=== PATIENT | female | born 1960 ===

== ENCOUNTER 2021-06-08 16:07 | Outpatient (REF) | payer MEDICARE, MEDICAID, SELFPAY ==
--- NOTE | ~2021-06-08 | XR_ITS ---
EXAMINATION: XR ANKLE, RIGHT XR FOOT, RIGHT CLINICAL INFORMATION: Pain. COMPARISON: None TECHNIQUE: AP, oblique, and lateral views of the right ankle and right foot. FINDINGS: No acute fracture or dislocation. The ankle mortise is maintained. No joint space narrowing or marginal osteophytes. No osseous erosion. Plantar and dorsal calcaneal enthesophytes. Prominent circumferential soft tissue swelling. XR/XR ankle RT 2V IMPRESSION: Prominent circumferential soft tissue swelling without acute osseous abnormality.
--- NOTE | ~2021-06-08 | XR_ITS ---
EXAMINATION: XR ANKLE, RIGHT XR FOOT, RIGHT CLINICAL INFORMATION: Pain. COMPARISON: None TECHNIQUE: AP, oblique, and lateral views of the right ankle and right foot. FINDINGS: No acute fracture or dislocation. The ankle mortise is maintained. No joint space narrowing or marginal osteophytes. No osseous erosion. Plantar and dorsal calcaneal enthesophytes. Prominent circumferential soft tissue swelling. XR/XR foot RT min 3V IMPRESSION: Prominent circumferential soft tissue swelling without acute osseous abnormality.
== END 2021-06-08 16:08 | disposition home or self-care (01) ==
LOC: HO.HMGCX 16:07
PROVIDERS: PCP Internal Medicine; Visit Provider Internal Medicine
DX: Z13.89 Encounter for screening for other disorder (principal)
CPT/HCPCS: 73600; 73630

== ENCOUNTER 2021-08-17 12:33 | Outpatient (REF) | payer MEDICARE, MEDICAID, SELFPAY ==
--- NOTE | ~2021-08-17 | XR_ITS ---
EXAMINATION: XR LUMBAR SPINE XR SACRUM AND COCCYX CLINICAL INFORMATION: W19.XXXA - Unspecified fall, initial encounter COMPARISON: None TECHNIQUE: Lumbar spine is imaged in 3 views. The sacrum/coccyx are imaged in 3 views. There are total of 6 views. FINDINGS: Normal lumbar segmentation with 5 nonrib-bearing lumbar vertebrae of normal height and normal lumbar lordosis. No vertebral compression or visible fracture or spondylolisthesis. No focal disc narrowing or endplate sclerosis. No erosive change. There is IVC filter right para lumbar region. Benign-appearing coarse calcification present left hemipelvis measuring 1.2 x 2.1 cm. Bowel gas unremarkable. The sacrum and coccyx show no fracture or dislocation or destructive process. No diastases SI joints. No erosive changes. There is mild spurring from the inferior SI joints and mild osteitis pubis. XR/XR sacrum coccyx min 2V IMPRESSION: No acute bony abnormality.
--- NOTE | ~2021-08-17 | XR_ITS ---
EXAMINATION: XR RIBS, RIGHT CLINICAL INFORMATION: W19.XXXA - Unspecified fall, initial encounter COMPARISON: None TECHNIQUE: Frontal view chest and 3 views right ribs are obtained for a total of 4 views. FINDINGS: There is no visible rib fracture or rib destructive process. There are prominent C7 transverse processes versus small cervical ribs, greater on right. There is no pneumothorax or pleural reaction or effusion. There is coarsening of the peripheral bronchovascular and interstitial markings. No lobar or segmental airspace consolidation or subsegmental groundglass opacity. The costophrenic sulci are clear. Heart is normal in size. The hilar and mediastinal contours are normal. XR/XR ribs RT min 3V w CXR1V IMPRESSION: 1. No visible rib fracture. No pneumothorax, pleural reaction, or effusion. 2. Coarsening bronchovascular/interstitial markings. No lobar or segmental airspace consolidation.
--- NOTE | ~2021-08-17 | XR_ITS ---
EXAMINATION: XR LUMBAR SPINE XR SACRUM AND COCCYX CLINICAL INFORMATION: W19.XXXA - Unspecified fall, initial encounter COMPARISON: None TECHNIQUE: Lumbar spine is imaged in 3 views. The sacrum/coccyx are imaged in 3 views. There are total of 6 views. FINDINGS: Normal lumbar segmentation with 5 nonrib-bearing lumbar vertebrae of normal height and normal lumbar lordosis. No vertebral compression or visible fracture or spondylolisthesis. No focal disc narrowing or endplate sclerosis. No erosive change. There is IVC filter right para lumbar region. Benign-appearing coarse calcification present left hemipelvis measuring 1.2 x 2.1 cm. Bowel gas unremarkable. The sacrum and coccyx show no fracture or dislocation or destructive process. No diastases SI joints. No erosive changes. There is mild spurring from the inferior SI joints and mild osteitis pubis. XR/XR lumbar spine 2-3V IMPRESSION: No acute bony abnormality.
== END 2021-08-17 12:34 | disposition home or self-care (01) ==
LOC: HO.HMGCX 12:33
PROVIDERS: PCP Internal Medicine; Visit Provider Internal Medicine
DX: M54.50 Low back pain, unspecified (principal); R07.9 Chest pain, unspecified; W19.XXXA Unspecified fall, initial encounter
CPT/HCPCS: 71101; 72100; 72220

== ENCOUNTER 2022-11-25 12:41 | Outpatient (REF) | payer MEDICARE, MEDICAID, SELFPAY ==
--- NOTE | ~2022-11-25 | XR_ITS ---
EXAMINATION: XR ANKLE, RIGHT CLINICAL INFORMATION: Achilles tendinitis, right leg COMPARISON: None TECHNIQUE: AP, lateral, and mortise views of the right ankle. FINDINGS: No fracture or dislocation. The ankle mortise is congruent. Circumferential soft tissue swelling. No ankle joint effusion. Moderate hypertrophic spurring of the plantar aponeurosis and Achilles insertion of the calcaneus. Additional calcification along the Achilles tendon. XR/XR ankle RT min 3V IMPRESSION: Moderate heel spurs. Achilles calcification. No acute osseous abnormality.
[2022-11-25 14:01] LABS: MANUAL DIFF FLAG NO
[2022-11-25 14:08] LABS: Basophils Absolute Auto 0.1 X10*3/uL (0.0-0.2); Basophils Percent Auto 0.8 % (0-2); Eosinophils Absolute Auto 0.4 X10*3/uL (0.0-0.4); Eosinophils Percent Auto 3.8 % (0-4); Hematocrit 49.6 % (37.0-47.0); Imm Gran Abs Auto 0.04 X10*3/uL (0.00-0.03); Imm Gran Pct Auto 0.4 % (0.0-0.4); Lymphocytes Absolute Auto 2.9 X10*3/uL (1.2-4.9); Lymphocytes Percent Auto 30.6 % (20-40); Mean Corpuscular HGB Conc 32.3 g/dl (31.0-35.0); Mean Corpuscular Hemoglobin 30.1 pg (27.0-33.0); Mean Corpuscular Volume 93.4 fL (80.0-98.0); Mean Platelet Volume 11.7 fL (9.4-12.3); Monocytes Absolute Auto 0.8 X10*3/uL (0.1-1.2); Monocytes Percent Auto 7.9 % (2-11); Neutrophils Absolute Auto 5.3 x10*3/uL (2.0-8.3); Neutrophils Percent Auto 56.5 % (45-73); Platelet Count 248 X10*3/uL (160-400); Red Blood Count 5.31 X10*6/uL (4.20-5.50); Red Cell Distribution Width 13.5 % (11.0-16.0); White Blood Count 9.4 X10*3/uL (4.8-10.8)
[2022-11-25 14:28] LABS: Alanine Aminotransferase 36 U/L (0-31); Albumin Level 4.1 g/dL (3.5-5.0); Alkaline Phosphatase 66 U/L (39-117); Anion Gap 13 (12-20); Aspartate Amino Transferase 27 U/L (5-31); Bilirubin Total 0.7 mg/dL (0.0-1.0); Blood Urea Nitrogen 14 mg/dL (9-16); Calcium 9.3 mg/dL (8.4-10.2); Carbon Dioxide 28 mmol/L (22-29); Chloride 106 mmol/L (96-108); Estimated Glomerular Filt Rate > 60; Glucose Random 111 mg/dL (60-115); Potassium 4.8 mmol/L (3.3-5.1); Sodium 142 mmol/L (135-145); Total Protein 7.6 g/dL (6.5-8.0)
[2022-11-25 14:45] LABS: TSH reflex Free T4 3.14 uIU/mL (0.32-4.0)
[2022-11-26 13:44] LABS: LDL Cholesterol Direct 127 mg/dL (<100)
== END 2022-11-25 12:42 | disposition home or self-care (01) ==
LOC: HO.HMGCX 12:41
PROVIDERS: Absent Provider Internal Medicine; PCP Internal Medicine; Visit Provider Internal Medicine
DX: F33.9 Major depressive disorder, recurrent, unspecified (principal); I82.409 Acute embolism and thrombosis of unspecified deep veins of unspecified lower extremity; F41.1 Generalized anxiety disorder; K21.9 Gastro-esophageal reflux disease without esophagitis; K22.4 Dyskinesia of esophagus; Z76.89 Persons encountering health services in other specified circumstances; Z92.29 Personal history of other drug therapy; G89.29 Other chronic pain; M79.606 Pain in leg, unspecified; I73.9 Peripheral vascular disease, unspecified
CPT/HCPCS: 36415; 73610; 80053; 83721; 84443; 85025

== ENCOUNTER 2023-04-11 11:03 | Outpatient (AMB) | payer MEDICARE, MEDICAID, SELFPAY ==
--- NOTE | 2023-04-11 11:05 | A.OFFPC_ITS ---
Vital Signs 04/11/23 11:07 Height 5 ft 3 in Weight 177 lb BMI 31.4 BP 122/78 Blood Pressure Location Lt brachial Position Sitting Pulse 91 Pulse Source Pulse Oximeter Pulse Oximetry (%) 96 Oxygen Delivery Method Room Air Intake Visit Reasons: Right leg f/u Allergies esomeprazole [Nexium] Allergy (Unknown, Verified 03/15/23 15:35) Unknown iron Allergy (Unknown, Verified 03/15/23 15:35) I go blind oxycodone Allergy (Unknown, Verified 03/15/23 15:35) Unknown tramadol Allergy (Unknown, Verified 03/15/23 15:35) itching stomach pain headaches warfarin Adverse Reaction (Unknown, Verified 03/15/23 15:35) gum and nose bleeds Contrast dye Allergy (Unknown, Uncoded 11/19/22 14:30) itching, nosebleeds Medication List - Last Reconciled 04/11/23 by Phil Lopez MD albuterol sulfate 2.5 mg (3 mL) inhalation QID PRN apixaban (Eliquis) 2.5 mg PO BID buspirone 5 mg PO .q am PRN 30 days cyclobenzaprine 5 mg PO BEDTIME 30 days fluticasone furoate-vilanterol 200-25 mcg/dose (Breo Ellipta) 1 ea PO DAILY gabapentin 600 mg PO BID 90 days hydrocortisone acetate 25 mg CA BID 6 days pantoprazole 40 mg PO DAILY 90 days sennosides-docusate sodium 8.6-50 mg (Senokot-S) 1 tab-cap PO BEDTIME 30 days tizanidine 2 mg PO Q8H PRN Ventolin HFA 90 mcg/actuation (albuterol sulfate) 1 inh inhalation QID PRN 30 days NS Tobacco use date assessed: 04/11/23 Dental Screening Dental Screen Date: 04/11/23 Did you have a dental visit in the last 12 months?: No Did you have a dental problem in the last 6 months where you did not have access to dental care?: No Was dental information given to patient?: No HPI Right leg f/u HPI Details Chief complaint: Patient is a 62-year-old female with history of clotting disorder and recurrent clots in her legs and left arm as long as lungs came in today to have paperwork filled to get a scooter. Patient is currently using scooter for many years and it has started causing problems she is requesting a new scooter It is medically necessary for this patient to have a scooter because of mobility issues. She continued to get edema in her lower extremity right more than left due to history of recurrent DVTs which contribute to her inability to ambulate. On examination patient has 4 / 5 strength in for lower extremities., she is able to stand with the help but not able to walk without assistance. Her left arm and has strength of 4 x 5 compared to right arm. Patient is not able to use the manual wheelchair due to weakness in her left arm. School will medically meet patient's mobility needs at home She can safely operate the motorized wheelchair like scooter and is willing and motivated to use it. MRADLs: Patient cannot use cane or walker because of weakness and pain in her lower extremities and weakness in her left arm. She have history of recurrent falls because of that. She is dependent on her partner to use bathroom and toilet and be the, partially dependent for partner to prepare meals but able to make sandwiches if she has a scooter She is dependent on her partner for grooming and dressing. [facility] Medical History Anxiety, generalized Asthma Hx of senior care use of blood thinners Muscle spasms of both lower extremities Recurrent deep vein thrombosis (DVT) Surgical History Hx of cholecystectomy S/P IVC filter Family History Father No problems noted. Mother HTN (hypertension) Diabetes mellitus Brother No problems noted. Sister No problems noted. Sister No problems noted. Son No problems noted. Son No problems noted. Son No problems noted. Son No problems noted. Son No problems noted. Social History Housing: House Patient Tobacco Use Status: Never used Tobacco e-Cigarette/Vaping Use: Never Used Second Hand Smoke Exposure: No Current occupational status: disabled Cognitive needs: No Hearing needs: No Vision needs: No Questionnaire Thrive Questionnaire Date Thrive assessed: 08/23/22 AUDIT C Alcohol Use Questionnaire (AUDIT-C) 1. How often do you have a drink containing alcohol?: Never 3. How often do you have six or more drinks on one occasion?: Never Total Score: 0 Score Reviewed/Action Taken: Yes Review of Systems Const Denies chills and Denies fever(s) ENT Denies epistaxis and Denies nasal discharge Card Denies chest pain Resp Denies chest congestion, Denies cough and Denies hemoptysis GI Denies diarrhea and Denies nausea Skin/Breast Denies rash Neuro Reports no additional complaints Psych Reports no additional complaints Endo Reports no additional complaints Physical exam (Primary Care) Vital Signs: Last Vital Signs Pulse 91 04/11/23 11:07 BP 122/78 04/11/23 11:07 Pulse Ox 96 04/11/23 11:07 Oxygen Delivery Method Room Air 04/11/23 11:07 BMI result Body Mass Index 31.4 Tobacco/Smoking Status: Tobacco use Status Tobacco use date assessed 04/11/23 04/11/23 11:10 Patient Tobacco Use Status Never used Tobacco 04/11/23 11:07 e-Cigarette/Vaping Use Never Used 04/11/23 11:07 Thrive Assessment: Date of Thrive Assessment Date Thrive assessed 08/23/22 04/11/23 11:07 Const Other: Came in sitting on her scooter with her partner General: cooperative, comfortable and no acute distress Orientation/consciousness: patient oriented x3 HENMT Head: Yes normocephalic Eyes General: appearance normal, both eyes and all related structures Neck Neck: Yes supple Resp Effort & Inspection: normal respiratory effort, no cough and no stridor Cardio Rhythm: regular rhythm Heart sounds: S1 normal heart sound present and S2 normal heart sound present Skin General skin exam: turgor normal Neuro Other: Motor strength by by both legs with instability when standing up. 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 Patient is able to stand with assistance it not able to walk without assistance General: patient oriented x3, tone normal and moves all extremities Assessment and Plan Assessment & Plan (1) Mobility impaired: Code(s): Z74.09 - Other reduced mobility Plan Chief complaint: Patient is a 62-year-old female with history of clotting disorder and recurrent clots in her legs and left arm as long as lungs came in today to have paperwork filled to get a scooter. Patient is currently using scooter for many years and it has started causing problems she is requesting a new scooter It is medically necessary for this patient to have a scooter because of mobility issues. She continued to get edema in her lower extremity right more than left due to history of recurrent DVTs which contribute to her inability to ambulate. On examination patient has 4 / 5 strength in for lower extremities., she is able to stand with the help but not able to walk without assistance. Her left arm and has strength of 4 x 5 compared to right arm. Patient is not able to use the manual wheelchair due to weakness in her left arm. School will medically meet patient's mobility needs at home She can safely operate the motorized wheelchair like scooter and is willing and motivated to use it. MRADLs: Patient cannot use cane or walker because of weakness and pain in her lower extremities and weakness in her left arm. She have history of recurrent falls because of that. She is dependent on her partner to use bathroom and toilet and be the, partially dependent for partner to prepare meals but able to make sandwiches if she has a scooter She is dependent on her partner for grooming and dressing. Coding Level of Care Code Est Pt Level 5 (02635) Diagnoses Mobility impaired Z74.09 Time Spent (min) 61 Comment 61 minute spent in care of this patient including [id number] and paperwork, charting
[2023-04-11 11:07] VITALS: BP 122/78; PULSE 91; O2SAT 96; BMI 31.4
== END 2023-04-11 12:23 | disposition home or self-care (01) ==
PROVIDERS: PCP Internal Medicine; Visit Provider Internal Medicine
DX: Z74.09 Other reduced mobility (principal)
CPT/HCPCS: 99215

== ENCOUNTER 2024-01-29 14:15 | Outpatient (AMB) | payer MEDICARE, MEDICAID, SELFPAY ==
--- OUTSIDE RECORDS SUMMARY | 2024-01-29 14:18 | XMS_ITS | Continuity of Care Document ---
Author Organization [facility] Pul[facility] ed[facility] Address [address] [address]- Care Team Providers Care Harness Brusher Name Role Phone John LUNDBERG, Asmmartin Primary Care Physician [phone] Encounter [facility] [place] Date(s): 03/27/23 - 04/26/23 [facility] [address] [place] [id number] Attending Physician: Admtr, Rl Admitting Physician: Admtr, Ar8 Referring Physician: Admtr, Ar8 Allergies, Adverse Reactions, Alerts Substance Reaction Severity Status morphine GI Upset, itching Active Contrast Dye 1 skin rash nose bleed Active Iron affects eye sight Active NSAIDs 2 Active oxyCODONE GI Upset, itching Active 1IV 2Due to being on blood thinner Immunizations Given and Recorded Vaccine Date Status Refusal Reason tetanus-diphtheria toxoids (Td) 1 07/27/11 Given 1Admin Note: MANFTD MASS BIO VIS GIVEN 08/19/2008 Medications Eliquis 2.5 mg oral tablet 1 tablet = 2.5 mg, By Mouth, 2 times a day, # 60 tablet, 0 Refills, Maintenance, 12/27/20 8:26:00 EDT, Tablet, Partial fill upon patient request if the prescription is for a schedule II opioid drug. Start Date: 12/27/20 Status: Ordered gabapentin 600 mg oral tablet 1 tablet = 600 mg, By Mouth, Daily at bedtime, TAKE 1 TABLET BY MOUTH AT BEDTIME, Maintenance Start Date: 12/27/20 Stop Date: 01/26/21 Status: Ordered ProAir HFA 90 mcg/inh inhalation aerosol with adapter 1, puffs, Inhalation, Every 4 hours, PRN, # 8.5 Gm, Refills 0, Maintenance, 04/14/16 12:07:25, Aerosol Start Date: 04/14/16 Status: Ordered tiZANidine 4 mg oral capsule 1 capsule = 4 mg, By Mouth, Daily, PRN Spasm, # 90 capsule, 0 Refills, Maintenance, 12/27/20 8:24:00 EDT, Capsule, Partial fill upon patient request if the prescription is for a schedule II opioid drug. Start Date: 12/27/20 Status: Ordered Problem List Condition Confirmation Course Effective Dates Status Health St atus Informant Anemia Confirmed Active Disorders of Menstruation and Other Abnormal Bleeding from Female Genital Tract Confirmed Active DVT - Deep vein thrombosis 1 Confirmed Active Obese class I Confirmed Active Pulmonary embolism 2 Confirmed 04/25/11 Active 1R leg, R cephalic vein 2bilateral Social History Social History Type Response Smoking Status Never smoker; Tobacc o user in household: No entered on: 08/04/14 Sex Patient Care team information Care Team Personnel Name: Lucrecia Bradley RN Position: [facility] RN Member Role: Primary Care Nurse Name: John LUNDBERG, Phil Position: [facility] Physician - Primary Care Member Role: PCP Address: Address: [address] [place] [address]- Name: Harinder Dick DO Position: [facility] Renal MD Member Role: Lifetime Consulting Physician Address: Address: [address] [place] [address] [address] [facility] [place] [address]- Care Team Related Persons Name: JANINE CABALLERO Address: home [address] [place] [address] Name: AFHEEM UGARTE Address: [address] [place] [address] Name: FAITH KUO Address: [address] [place] [address] Name: CORA KUO Address: home [address] [place] [address]
--- OUTSIDE RECORDS SUMMARY | 2024-01-29 14:18 | XMS_ITS | Continuity of Care Document ---
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 RN Member Role: Primary Care Nurse Name: Phil Lopez MD Position: [facility] Physician - Primary Care Member Role: PCP Address: Address: [address] [place] [address]- Name: Harinder Dick DO Position: [facility] Renal MD Member Role: Lifetime Consulting Physician Address: Address: [address] [place] [address] [address] [facility] [place] [address]- Care Team Related Persons Name: JANINE CABALLERO Address: [address] [place] [address] Name: FAHEEM UGARTE Address: [address] [place] [address] Name: FAITH KUO Address: [address] [place] [address] Name: CORA KUO Address: home [address] [place] [address]
--- OUTSIDE RECORDS SUMMARY | 2024-01-29 14:18 | XMS_ITS | Continuity of Care Document ---
Author Organization [facility] ed[facility] Address [address] [address]- Care Team Providers Care Electronic Maintenance Supervisor Name Role Phone John LUNDBERG, Asma Primary Care Physician Encounter [facility] [place] Date(s): 03/20/23 - 04/19/23 [facility] [address] [place] [id number] Allergies, Adverse Reactions, Alerts Substance Reaction Severity Status morphine GI Upset, itching Active Iron affects eye sight Active NSAIDs 1 Active oxyCODONE GI Upset, itching Active Contrast Dye 2 skin rash nose bleed Active 1Due to being on blood thinner 2IV Immunizations Given and Recorded Vaccine Date Status [...] Team Personnel Name: Lucrecia Bradley RN Position: [facility] RN Member Role: Primary Care Nurse Name: John LUNDBERG, Phil Position: [facility] Physician - Primary Care Member Role: PCP Address: Address: [address] [place] [address]- Name: Harinder Dick DO Position: [facility] Renal MD Member Role: Lifetime Consulting Physician Address: Address: [address] [place] [address] [address] [facility] [place] [address]- Care Team Related Persons Name: JANINE CABALLERO Address: [address] [place] [address] Name: FAHEEM UGARTE Address: [address] [place] [address] Name: FAITH KUO Address: [address] [place] [address] Name: CORA KUO Address: home [address] [place] [address]
--- OUTSIDE RECORDS SUMMARY | 2024-01-29 14:18 | XMS_ITS | Continuity of Care Document ---
Author Organization [facility] ter Address [address] [place] [address]- Care Team Providers Care Machine Scallop Cutter Name Role Phone John LUNDBERG, Asma Primary Care Physician [place] [facility] [place]/24/23 - 04/24/[address] [address] Discharge Disposition: A-D/C Home Attending Physician: Cristi Rabago MD Admitting Physician: Cristi Rabago MD Referring Physician: Cristi Rabago MD Allergies, Adverse Reactions, Alerts Substance Reaction [...] Active 1R leg, R cephalic vein 2bilateral Vital Signs Most recent to oldest [Reference Range]: 1 2 3 Height 160 cm (04/24/23 6:30 AM) 160 cm (04/19/23 10:17 AM) Weight 79.4 kg (04/24/23 6:30 AM) 77.2 kg (04/19/23 10:17 AM) Oxygen Saturation [94-100 %] 95 % (04/24/23 10:30 AM) 100 % (04/24/23 10:15 AM) 100 % (04/24/23 10:00 AM) Pulse Rate [55-90 bpm] 77 bpm (04/24/23 6:30 AM) Body Mass Index [18.5-24.99 kg/m2] 31.02 kg/m2 *>HHI* (04/24/23 6:30 AM) 30.16 kg/m2 *>HHI* (04/19/23 10:17 AM) Blood Pressure [90-138/55-84 mm Hg] 136/85mm Hg (04/24/23 10:30 AM) 121/83mm Hg (04/24/23 10:15 AM) 132/80mm Hg (04/24/23 10:00 AM) Respiratory Rate [16-30 br/min] 28 br/min (04/24/23 7:30 AM) 18 br/min (04/24/23 7:25 AM) 18 br/min (04/24/23 7:20 AM) Temperature [96.8-100.4 DegF] 98.5 DegF (04/24/23 10:30 AM) 97.8 DegF (04/24/23 9:15 AM) 98.4 DegF (04/24/23 6:30 AM) Liters per Minute 7 L/min (04/24/23 9:15 AM) 2 L/min (04/24/23 7:30 AM) 2 L/min (04/24/23 7:25 AM) Mode of Delivery (Oxygen) Room air (04/24/23 9:30 AM) Simple face mask (04/24/23 9:15 AM) Nasal cannula (04/24/23 7:30 AM) Blood pressure sites Arm, right (04/24/23 9:15 AM) Arm, right (04/24/23 6:30 AM) Temperature Route Temporal (04/24/23 10:30 AM) Temporal (04/24/23 9:15 AM) Temporal (04/24/23 6:30 AM) Dry Weight 79.4 kg (04/24/23 6:30 AM) 77.2 kg (04/19/23 10:17 AM) Weight Obtained Via Standing scale (04/24/23 6:30 AM) Patient/family stated (04/19/23 10:17 AM) Dry Weight Obtained Via Standing scale (04/24/23 6:30 AM) Patient/family stated (04/19/23 10:17 AM) Social History Social History Type Response Smoking Status Never smoker; Tobacc o user in household: No entered on: 08/04/14 Sex Note * Jane Napier RN: PERFORM, MODIFY Event Display: Patient Education/Instruction Authored Date: [id number] Inpatient Adult Discharge Instructions [address] [address] Name: MARA GALEANO : 1960 Visit: 04/24/2023 05:36:00 Current Date: 04/24/2023 10:06 Account: [id number] Inpatient Adult Discharge Instructions We would like to thank you for allowing us to assist you with your healthcare needs. The following includes patient education materials and information regarding your injury/illness. Our entire staffstrives to provide an excellent experience for our patients and their families. PLEASE ENSURE YOU FOLLOW-UP PER THE INSTRUCTIONS BELOW! ?? YOUR OPINION IS IMPORTANT TO US! Please complete the survey you may receive by mail or email. Your feedback will be used to make improvements to the healthcare experiences of our patients and their families. Surveys are administered by [employer] ?? If further treatment with your primary care physician or another doctor is recommended, it is important for you to keep the appointment. Call your primary care physician or return to the Emergency Department immediately if your condition worsens, fails to improve, or new symptoms develop. If you need to find a doctor, you can call [facility] for a referral at [phone] or toll free at [phone]) or log in to [email or web address].. ?? You can view and manage your care through the patient portal or by using a health care elise of your choosing. [employer] is a website that allows you to securely view your medical information including your hospital discharge summary, office visit summaries, medications and follow-up visits. You can also request appointments, renew medications, and request access to your medical information using a health care elise of your choosing, or just ask a question. You can enroll at [email or web address] or register during your next office visit. You have been discharged from [facility], Patient Care Unit: [facility]. If you have any questions regarding these instructions after you leave, please call us and we will be happy to assist you. [facility] Your Care Team Attending Physician Cristi Rabago MD Discharging Providers Cristi Rabago MD Reason for Admission RIGHT INSERTIONAL ACHILLES TENDONITIS CS DS Tests Performed Below is a partial list of the tests performed during your hospitalization. You may have had other tests and procedures not included in this list. Please discuss all test results with your provider. Primary Care Provider John LUNDBERG, Asma Advance Directive Health Care Proxy on File Yes - Health Care Proxy Discharge Vitals Temperature: 97.8 DegF Height: 160 cm Pulse Rate: 77 bpm Weight: 79.4 kg Respiratory Rate: 28 br/min Body Mass Index:??31.02 kg/m2??Critical Systolic Blood Pressure: 125 mm Hg Body surface area: 1.88 Diastolic Blood Pressure: 70 mm Hg ?? Oxygen Saturation: 100 % ?? Studies Pending All tests and labs ordered during this hospital stay have been completed unless listed below. Please discuss all pending results with your provider listed above in these instructions. ?? No incomplete studies found What to do next Instructions From Your Doctor Discharge Orders follow your pain pill regimen disgusted with surgeon. Non weight bearing as surgeon?? disgusted with you. Call surgeon for any questions You Need to Schedule the Following Appointments Follow Up with??Gem LUNDBERG, Cristi Santos When:??Within 1 to 2 weeks Where: [address] [facility] [place] [address]- Discharge Medications MARA GALEANO :1960 Visit Date:04/24/2023 Medications: Please continue your medications until treatment is completed or stopped by your provider. Medications not listed below should be discontinued. Discuss any questions related to medications with your provider. What How Much When Instructions Next Dose Unchanged Albuterol (ProAir HFA 90 mcg/ inh inhalation aerosol with adapter) 1 puff(s) Inhalation Every 4 hours as needed for for wheezing Unchanged apixaban (Eliquis 2.5 mg oral tablet) 1 tab(s) Oral Twice a day may start tomorrow Unchanged Gabapentin (gabapentin 600 mg oral tablet) 1 tab(s) Oral Daily at Bedtime Duration: 30 Days TAKE 1 TABLET BY MOUTH AT BEDTIME ?? Unchanged Tizanidine (tiZANidine 4 mg oral capsule) 1 capsule Oral Daily as needed for Spasm may restart 04/25/23 Test Results Below is a partial list of the most recent Laboratory test results done prior to this discharge. You may have had other tests and procedures not included in this list. Please discuss all test resultswith your provider. Allergies (NKA means No Known Allergies) Contrast Dye??(skin rash, nose bleed) Iron??(affects eye sight) NSAIDs morphine??(GI Upset, itching) oxyCODONE??(GI Upset, itching) Problems Active Problems??(6) Age at leaving school-some college?? Anemia?? Disorders of Menstruation and Other Abnormal Bleeding from Female Genital Tract?? DVT - Deep vein thrombosis?? Obese class I?? Pulmonary embolism?? Education Materials Below is the list of Educational Leaflet Providered with your Discharge Instructions. Anesthesia: General Anesthesia?? Valuables and Belongings I fully understand and agree that [facility] accepts no responsibility for all my personal property including clothing, toilet articles, radios, jewelry, dentures, hearing aids, rings, money, or any other property that is in my possession or is brought to me after admission. I understand certain valuables may be placed in a hospital safe for a short period of time. I understand that the hospital is not liable for loss or damage due to accident, fire, or other natural occurrence while said property is in the safe. I accept full responsibility for any personal property that I keep with me, and will not hold the hospital responsible in case of loss or disappearance. I acknowledge that i have been encouraged to send valuables and belongings home. ?? Review of Valuable and Belonging List: With patient Disposition of Belongings: Other: with patient under stretcher Date for Pt to Sign Valuables/Belongings: 04/24/23 06:30:00 ?? Valuables & Belongings ?? Clothes Electronic devices Jewelry Monetary Items Personal devices Miscellaneous Medications (Valuables) Valuables at Bedside Pants, Shirt, Shoes, Undergarments ? Valuables Sent Home ? Valuables Sent to Security ? Other Discharge Information ? Pulmonary Rehab Status?? Pulmonary Rehab Discharge Status?? Respiratory Rate: 28 br/min ? Common Emergency Awareness Tips IS IT A STROKE? Act FAST and Check for these signs: FACE Does the face look uneven? ARM Does one arm drift down? SPEECH Does their speech sound strange? TIME Call at any sign of stroke ?? Heart Attack Signs Chest discomfort: Most heart attacks involve discomfort in the center of the chest and lasts more than a few minutes, or goes away and comes back. It can feel like uncomfortable pressure, squeezing, fullness or pain. Discomfort in upper body: Symptoms can include pain or discomfort in one or both arms, back, neck, jaw or stomach. Shortness of breath: With or without discomfort. Other signs: Breaking out in a cold sweat, nausea, or lightheaded. Remember, MINUTES DO MATTER. If you experience any of these heart attack warning signs, call to get immediate medical attention! ?? Smoking can increase your chances of developing chronic health problems and can cause harmful effects to other family members in your house. If you smoke, you are strongly encouraged to quit. Please call [facility] Link at [phone] or [phone] ([phone]) or log in to [email or web address] for referrals to smoking cessation programs. ?? 659 Suicide & Crisis Lifeline is available 24/04 if you or someone you know needs to find a reason to keep living. By calling 674 you'll be connected to a skilled, trained counselor at a crisis center in your area. INPATIENT DISCHARGE INSTRUCTIONS SIGNATURE MARA MERRILL Location:[facility] Registration Date and Time:04/24/2023 05:36 EDT Primary Care Physician: John LUNDBERG, Asmmartin, Attending Physician: Gem LUNDBERG, Cristi Santos, I MARA GALEANO, have received the above patient education materials/instructions and have verbalized understanding. If ambulance or transport services are being used I further acknowledge being given a choice of service. ?? If you need to contact me, please call me at this number: . Patient/Crystal Machining Coordinator Name: Patient/Crystal Machining Coordinator Signature: Relationship to Patient: Witness Name/Signature: Date: * Jane Napier RN: PERFORM Event Display: Patient Education Leaflets Authored Date: [id number] Anesthesia: General Anesthesia ?? Anesthesia: General Anesthesia You???re due to have surgery. During surgery, you???ll be given medicine called anesthesia or anesthetic. This will keep you comfortable and pain-free. Your??anesthesia provider??will use general anesthesia . You are watched continuously during your procedure by your anesthesia provider. What is general anesthesia? General anesthesia puts you into a state like deep sleep. It goes into the bloodstream (IV anesthetics), into the lungs (gas anesthetics), or both. You feel nothing during the procedure. You won't remember it. During the procedure, the anesthesia provider watches you continuously. They check your heart rate and rhythm, blood pressure, breathing, and blood oxygen. ??? IV anesthetics. IV anesthetics are given through an IV (intravenous) line in your arm. They???re often given first. This is so you're asleep before a gas anesthetic is started. Some kinds of IV anesthetics ease pain. Others relaxyou. Your healthcare provider will decide which kind is best in your case. ??? Gas anesthetics. Gas anesthetics are breathed into the lungs. They're often used to keep you asleep. They can be given through a face mask. Or they can be given through a tube placed in your voice box (larynx) or breathing tube (trachea). o Face mask. Your anesthesia provider will most likely place the face mask over your nose and mouth while you???re still awake. You???ll breathe oxygen through the mask as your IV anesthetic is started. Gas anesthetic may be added through the mask. o Tube in the larynx or trachea.The tube will be inserted into your throat after you???re asleep. ?? Anesthesia tools and medicines You will likely have: ??? IV anesthetics. These are put into an IV line into your bloodstream. ??? Gas anesthetics.??You breathe these??anesthetics??into your lungs. Then they pass into your bloodstream. ??? Pulse oximeter. This is a small clip that's attached to??the end of your finger. It measures your blood oxygen level. ??? Electrocardiography leads (electrodes). ??These are small sticky padsthat are placed??on your chest. They record your heart rate and rhythm. ??? Blood pressure cuff. This reads your blood pressure. ?? Risks and possible complications General anesthesia has some risks. These include: ??? Breathing problems ??? Upset stomach (nausea)and vomiting ??? Sore throat or hoarseness (usually temporary) ??? Allergic reaction to the anesthetic ??? Irregular heartbeat (rare) ??? Cardiac arrest (rare) ?? Anesthesia safety ??? Follow any directions you're given for not eating or drinking before your procedure. ??? Tell your healthcare provider knows what medicines??you take. This includes prescriptionand mulf-ogy-hxhmwel medicines. It includes vitamins, herbs, and other supplements. You'll be askedwhen those were last taken. ??? Have an adult family member or friend drive you home after the procedure. ??? For the first 24 hours after your surgery: o Don't drive or use heavy equipment. o Don't make important decisions or sign legal documents. If important decisions or signing legal documents is necessary during the first 24 hours after surgery, have a trusted family member or spouse act on your behalf. o Don't drink alcohol. o Have??a responsible adult??stay with you.??They can watch for problems and help keep you safe. ?? Last Reviewed Date: 2021 ?? [employer]. All rights reserved. This information is not intended as a substitute for professional medical care. Always follow your healthcare professional's instructions. ?? Patient Care team information Care Team Personnel Name: Lucrecia Bradley RN Position: S RN Member Role: Primary Care Nurse Name: Phil Lopez MD Position: S Physician - Primary Care Member Role: PCP Address: Address: [address] [place] [address]- [place] Name: Harinder Dick DO Position: [facility] Renal MD Member Role: Lifetime Consulting Physician Address: Address: [address] [place] [address] [address] [facility] [place] [address]- [place] Care Team Related Persons Name: JANINE CABALLERO Address: [address] [place] [address] Name: FAHEEM UGARTE Address: [address] [place] [address] Name: FAITH KUO Address: home [address] [place] [address] Name: CORA KUO Address: home [address] [place] [address]
--- OUTSIDE RECORDS SUMMARY | 2024-01-29 14:18 | XMS_ITS | Continuity of Care Document ---
Author Organization [facility] ter Address [address] [place] [address]- Care Team Providers Care Pickling Machine Operator Name Role Phone John LUNDBERG, Asma Primary Care Physician En[place] [facility] [place] Date(s): 03/14/23 - 04/14/[address] [address] Attending Physician: Cristi Rabago MD Admitting Physician: Cristi Rabago MD Referring Physician: Cristi Rabago MD Allergies, Adverse Reactions, Alerts Substance Reaction Severity Status morphine Active Contrast Dye 1 skin rash nose bleed Active Iron Active NSAIDs 2 Active oxyCODONE Active 1IV 2Due to being on blood thinner Immunizations Given and Recorded Vaccine Date Status Refusal Reason tetanus-diphtheria toxoids (Td) 1 07/27/11 Given 1Admin Note: MANFTD MASS BIO VIS GIVEN 08/19/2008 Medications AirDuo Digihaler 232 mcg-14 mcg/inh inhalation powder INHALE 1 PUFF BY MOUTH TWICE DAILY Start Date: 12/27/20 Status: Ordered Eliquis 2.5 mg oral tablet 1 tablet [...] - Deep vein thrombosis 1 Confirmed Active Pulmonary embolism 2 Confirmed 04/25/11 Active 1R leg, R cephalic vein 2bilateral Social History Social History Type Response Smoking Status Never smoker; Tobacc o user in household: No entered on: 08/04/14 Sex Patient Care team information Care Team Personnel Name: Lucrecia Bradley RN Position: [facility] RN Member Role: Primary Care Nurse Name: Phil Lopez MD Position: [facility] Physician - Primary Care Member Role: PCP Address: Address: [address] [place] [address]- Name: Harinder Dick DO Position: [facility] Renal MD Member Role: Lifetime Consulting Physician Address: Address: [address] [place] [address] [address] [facility] [place] [address]- Care Team Related Persons Name: JANINE CABALLERO Address: [address] [place] [address] Name: FAHEEM UGARTE Address: [address] [place] [address] Name: FAITH KUO Address: [address] [place] [address] Name: CORA KUO Address: [address] [place] [address]
--- OUTSIDE RECORDS SUMMARY | 2024-01-29 14:18 | XMS_ITS | Continuity of Care Document ---
Author Organization [facility] ter Address [address] [place] [address]- Care Team Providers Care Plate Stacker Name Role Phone John LUNDBERG, Asma Primary Care Physician [place] [facility] [place] - [place]/16/[address] [address] Attending Physician: Cristi Rabago MD Admitting Physician: [...] Team Personnel Name: Lucrecia Bradley RN Position: [facility] RN Member Role: Primary Care Nurse Name: Phil Lopez MD Position: [facility] Physician - Primary Care Member Role: PCP Address: Address: [address] [place] [address]- Name: Harinder Dick DO Position: [facility] Renal MD Member Role: Lifetime Consulting Physician Address: Address: [address] [place] [address] [address] [facility] [place] [address]- Care Team Related Persons Name: JANINE CABALLERO Address: [address] [place] [address] Name: FAHEEM UGARTE Address: [address] [place] [address] Name: FAITH KUO Address: [address] [place] [address] Name: CORA KUO Address: [address] [place] [address]
--- NOTE | 2024-01-29 15:23 | AM.OFFWIN_ITS ---
Intake Vital Signs 01/29/24 15:24 Height 5 ft 3 in Weight 168 lb BMI 29.8 BP 112/78 Blood Pressure Location Lt brachial Position Sitting Pulse 81 Pulse Source Pulse Oximeter Temp 97.8 F Temp Source Temporal Artery Scan Pulse Oximetry (%) 96 Oxygen Delivery Method Room Air Intake Visit Reasons: EP ear pain both vertigo Intake Note: Pt presents to the office today for c/o bilateral ear pain that started about a week ago. She states she had a cold but now states both ears are very painful and the right one is worse. Patient Tobacco Use Status: Never used Tobacco Allergies esomeprazole [Nexium] Allergy (Unknown, Verified 01/29/24 15:25) Unknown iron Allergy (Unknown, Verified 01/29/24 15:25) I go blind oxycodone Allergy (Unknown, Verified 01/29/24 15:25) Unknown tramadol Allergy (Unknown, Verified 01/29/24 15:25) itching stomach pain headaches warfarin Adverse Reaction (Unknown, Verified 01/29/24 15:25) gum and nose bleeds Contrast dye Allergy (Unknown, Uncoded 01/29/24 15:25) itching, nosebleeds HPI HPI Comments History of Present Illness Details presents to walkin today for sick visit Complaining of bilateral ear pain for last several days. Has been suffering with upper respiratory infection for greater than one-week, other symptoms have resolved but remains with bilateral ear pain and some sinus congestion Denies hearing loss, drainage from ear, ringing in the ear, dizziness, syncope. Patient denies sore throat, fever, vomiting, diarrhea, headache. [facility] Medical History Asthma Hx of skilled nursing use of blood thinners Muscle spasms of both lower extremities Recurrent deep vein thrombosis (DVT) Anxiety, generalized Surgical History S/P IVC filter Hx of cholecystectomy Family History Father No problems noted. Mother HTN (hypertension) Diabetes mellitus Brother No problems noted. Sister No problems noted. Sister No problems noted. Son No problems noted. Son No problems noted. Son No problems noted. Son No problems noted. Son No problems noted. Social History Housing: House Patient Tobacco Use Status: Never used Tobacco e-Cigarette/Vaping Use: Never Used Second Hand Smoke Exposure: No Current occupational status: disabled Cognitive needs: No Hearing needs: No Vision needs: No Review of Systems Const All systems reviewed & are unremarkable except as noted in HPI and below Physical Exam Vital Signs: Last Vital Signs Temp 97.8 F 01/29/24 15:24 Pulse 81 01/29/24 15:24 BP 112/78 01/29/24 15:24 Pulse Ox 96 01/29/24 15:24 Oxygen Delivery Method Room Air 01/29/24 15:24 BMI result Body Mass Index 29.8 General: awake, alert, oriented. Answers questions appropriately. Fully engaged in examination. Skin: warm, dry, intact HEENT: Normocephalic. Hearing intact. Left TM erythematous, cloudy. Right TM erythematous. Cardiac: External chest normal in appearance. Respiratory: No cough, audible wheezing or stridor. Abdomen: without gross distension. MS: No obvious swelling or deformities. Using motorized scooter. Neurological: Oriented to person, place, time and situation. Thought process intact. Psychiatric: Appropriate mood and affect. Good judgment and insight. Assessment & Plan Assessment & Plan (1) Otitis media: Code(s): H66.90 - Otitis media, unspecified, unspecified ear Plan presented to walkin today with complaints of bilateral ear pain Augmentin DS BID for 7 days. Drink plenty of fluids, avoid getting anything in the ear, tylenol as needed. Unable to take nonsteroidal anti-inflammatory medication as she is on Eliquis. All questions and concerns were addressed during the visit, patient agrees with the plan. Follow up with pcp or in walkin for any new or worsening symptoms. Medications: New amoxicillin-pot clavulanate 875-125 mg 1 tab PO BID 14 tabs 0RF Coding Level of Care Code Est Pt Level 3 (66602) Diagnoses Otitis media H66.90
[2024-01-29 15:24] VITALS: BP 112/78; PULSE 81; TEMP 36.6; O2SAT 96; BMI 29.8
== END 2024-01-29 15:55 | disposition home or self-care (01) ==
PROVIDERS: PCP Internal Medicine; Visit Provider Registered Nurse Emergency
DX: H66.93 Otitis media, unspecified, bilateral (principal)
CPT/HCPCS: 99213

== ENCOUNTER 2024-02-05 12:45 | Outpatient (AMB) | payer MEDICARE, MEDICAID, SELFPAY ==
--- NOTE | 2024-02-05 12:50 | MHC.OFFWIV ---
Intake Vital Signs 02/05/24 12:51 Height 5 ft 3 in BMI Reason not done Patient refused/unable BP 140/70 H Blood Pressure Location Lt brachial Position Sitting Pulse 80 Pulse Source Pulse Oximeter Temp 97.2 F Temp Source Temporal Artery Scan Pulse Oximetry (%) 96 Oxygen Delivery Method Room Air Intake Visit Reasons: EP severe ear pain Intake Note: pt is here today for severe ear pain started 01/28 Patient Tobacco Use Status: Never used Tobacco Allergies esomeprazole [Nexium] Allergy (Unknown, Verified 02/05/24 15:18) Unknown iron Allergy (Unknown, Verified 02/05/24 15:18) I go blind oxycodone Allergy (Unknown, Verified 02/05/24 15:18) Unknown tramadol Allergy (Unknown, Verified 02/05/24 15:18) itching stomach pain headaches warfarin Adverse Reaction (Unknown, Verified 02/05/24 15:18) gum and nose bleeds Contrast dye Allergy (Unknown, Uncoded 02/05/24 15:18) itching, nosebleeds Medication List - Last Reconciled 02/05/24 by Alex Shetty MD albuterol sulfate 2.5 mg (3 mL) inhalation QID PRN apixaban (Eliquis) 2.5 mg PO BID azithromycin take 500 mg today (day 1), then 250 mg for 4 days (days 2-5) PO buspirone 5 mg PO .q am PRN 30 days cyclobenzaprine 5 mg PO BEDTIME 30 days fluticasone furoate-vilanterol 200-25 mcg/dose (Breo Ellipta) 1 ea PO DAILY gabapentin 600 mg PO BID 90 days hydrocortisone acetate 25 mg [place] BID 6 days pantoprazole 40 mg PO DAILY 90 days sennosides-docusate sodium 8.6-50 mg (Senokot-S) 1 tab-cap PO BEDTIME 30 days tizanidine 2 mg PO Q8H PRN Ventolin HFA 90 mcg/actuation (albuterol sulfate) 1 inh inhalation QID PRN 30 days NS Do you need a note to return to daycare/school/sports/work: No HPI EP severe ear pain HPI Details 63 yr old female comes into the examining room in a motorized scoooter. Patient complains of significant pain in the right ear. Was seen here in the past few weeks and was put on Augmentin. Not much improvement in the pain symptoms. Patient was seen by a dentist today and was told she has no infection in the mouth. She is convinced that there is an infection and would like another round of antibiotics. 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 Mother HTN (hypertension) Diabetes mellitus Brother No problems noted. Sister No problems noted. Sister No problems noted. Son No problems noted. Son No problems noted. Son No problems noted. Son No problems noted. Son No problems noted. Social History Housing: House Patient Tobacco Use Status: Never used Tobacco e-Cigarette/Vaping Use: Never Used Second Hand Smoke Exposure: No Current occupational status: disabled Cognitive needs: No Hearing needs: No Vision needs: No Physical Exam Vital Signs: Last Vital Signs Temp 97.2 F 02/05/24 12:51 Pulse 80 02/05/24 12:51 BP 140/70 H 02/05/24 12:51 Pulse Ox 96 02/05/24 12:51 Oxygen Delivery Method Room Air 02/05/24 12:51 Const General: cooperative and healthy appearing Nutritional Appearance: well nourished Orientation/consciousness: patient oriented x3 Limitations: no limitations HEENT Other: Right ear: TM is normal. No ear canal congestion. No mastoid tenderness. Oral Cavity: Normal. Left ear: TM is normal, No ear canal congestion. No mastoid tenderness. Head: Yes normal to inspection Eyes General: appearance normal, both eyes and all related structures Neck Neck: Yes normal visual inspection Chest Chest palpation & inspection: normal palpation of entire chest wall Resp Effort & Inspection: normal respiratory effort Neuro General: patient oriented x3 Assessment & Plan Assessment & Plan (1) Upper respiratory tract infection: Code(s): J06.9 - Acute upper respiratory infection, unspecified Plan: Antibiotic called in. Pt has an appt with her PCP later this week and will get an ENT appt if necessary. Medications: New azithromycin take 500 mg today (day 1), then 250 mg for 4 days (days 2-5) PO 6 tabs 0RF Coding Level of Care Code Est Pt Level 3 (71846) Diagnoses Upper respiratory tract infection J06.9
[2024-02-05 12:51] VITALS: BP 140/70; PULSE 80; TEMP 36.2; O2SAT 96
== END 2024-02-05 14:31 | disposition home or self-care (01) ==
PROVIDERS: PCP Internal Medicine; Visit Provider Internal Medicine
DX: J06.9 Acute upper respiratory infection, unspecified (principal)
CPT/HCPCS: 99213

== ENCOUNTER 2024-02-09 10:15 | Outpatient (AMB) | payer MEDICARE, MEDICAID, SELFPAY ==
[2024-02-09 10:22] VITALS: BP 122/84; PULSE 80; O2SAT 97; BMI 31.9
--- NOTE | 2024-02-09 10:22 | A.OFFPC_ITS ---
Vital Signs 02/09/24 10:22 Height 5 ft 3 in Weight 180 lb 2 oz BMI 31.9 BP 122/84 Blood Pressure Location Lt brachial Position Sitting Pulse 80 Pulse Source Pulse Oximeter Pulse Oximetry (%) 97 Oxygen Delivery Method Room Air Intake Visit Reasons: F/U Meds Allergies esomeprazole [Nexium] Allergy (Unknown, Verified 02/09/24 10:26) Unknown iron Allergy (Unknown, Verified 02/09/24 10:26) I go blind oxycodone Allergy (Unknown, Verified 02/09/24 10:26) Unknown tramadol Allergy (Unknown, Verified 02/09/24 10:26) itching stomach pain headaches warfarin Adverse Reaction (Unknown, Verified 02/09/24 10:26) gum and nose bleeds Contrast dye Allergy (Unknown, Uncoded 02/05/24 15:18) itching, nosebleeds Medication List - Last Reconciled 02/09/24 by Phil Lopez MD albuterol sulfate 2.5 mg (3 mL) inhalation QID PRN apixaban (Eliquis) 2.5 mg PO BID buspirone 5 mg PO .q am PRN 30 days cyclobenzaprine 5 mg PO BEDTIME 30 days fluticasone furoate-vilanterol 200-25 mcg/dose (Breo Ellipta) 1 ea PO DAILY gabapentin 600 mg PO BID 90 days hydrocortisone acetate 25 mg [place] BID 6 days sennosides-docusate sodium 8.6-50 mg (Senokot-S) 1 tab-cap PO BEDTIME 30 days tizanidine 2 mg PO Q8H PRN Ventolin HFA 90 mcg/actuation (albuterol sulfate) 1 inh inhalation QID PRN 30 days NS Tobacco use date assessed: 02/09/24 Dental Screening Dental Screen Date: 02/09/24 Did you have a dental visit in the last 12 months?: Yes Did you have a dental problem in the last 6 months where you did not have access to dental care?: No Was dental information given to patient?: Patient has dentist HPI F/U Meds HPI Details Patient is 63-year-old female with a history of recurrent DVTs on chronic blood thinners Asthma, currently seeing electronic publishing specialist with [facility] Unable to take deep breaths because of pain Which is chronic problem with the patient She was last seen April of last year, then missed her appointment Patient has been having foot surgery right side with [facility] She tells me that she had 5th digit surgery 1st and she has a screw inside, and then she had a surgery for heel spur And then she had a surgery for Achilles tendon Now patient is having difficulty walking because of pain Patient says that she went to [facility] and they have told her that there is nothing much they can do However she might benefit from physical therapy. She said she do not want to go back and is requesting a physical therapy order from me Explained to patient that it will be a better way to do if she go back and have the orthopedic placed the order So that physical therapist can focus on specific part of the foot which is causing the pain. Patient understand and will reach out to orthopedic. She also is dependent on electronic mobility device Which is very old We have done paperwork twice but she has not been able to get it still I have placed a referral to school library media specialist so they can evaluate and help patient in that regard. Anxiety stable patient is taking buspirone as needed She is also on gabapentin 600 mg which she takes due to pain in her legs, patient is also taking that as needed. She has not gotten refill on that medication since March of last year She also take muscle relaxer for leg muscle spasms Blood pressure is controlled She has external hemorrhoids which are bothering her these days, patient is trying to avoid constipation Asthma management through electronic publishing specialist [facility] She is due for labs order placed to be done today patient is fasting. 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 Mother HTN (hypertension) Diabetes mellitus Brother No problems noted. Sister No problems noted. Sister No problems noted. Son No problems noted. Son No problems noted. Son No problems noted. Son No problems noted. Son No problems noted. Social History Housing: House Patient Tobacco Use Status: Never used Tobacco e-Cigarette/Vaping Use: Never Used Second Hand Smoke Exposure: No Current occupational status: disabled Cognitive needs: No Hearing needs: No Vision needs: No Questionnaire Thrive Questionnaire Date Thrive assessed: 08/23/22 AUDIT C Alcohol Use Questionnaire (AUDIT-C) 1. How often do you have a drink containing alcohol?: Never 3. How often do you have six or more drinks on one occasion?: Never Total Score: 0 Score Reviewed/Action Taken: Yes Review of Systems Const Denies chills and Denies fever(s) ENT Denies epistaxis and Denies nasal discharge Card Denies chest pain Resp Denies chest congestion, Denies cough and Denies hemoptysis GI Denies diarrhea and Denies nausea Skin/Breast Denies rash Neuro Reports no additional complaints Psych Reports no additional complaints Endo Reports no additional complaints Physical exam (Primary Care) Vital Signs: Last Vital Signs Pulse 80 02/09/24 10:22 BP 122/84 02/09/24 10:22 Pulse Ox 97 02/09/24 10:22 Oxygen Delivery Method Room Air 02/09/24 10:22 BMI result Body Mass Index 31.9 Tobacco/Smoking Status: Tobacco use Status Tobacco use date assessed 02/09/24 02/09/24 10:27 Patient Tobacco Use Status Never used Tobacco 02/09/24 10:27 e-Cigarette/Vaping Use Never Used 02/09/24 10:27 Thrive Assessment: Date of Thrive Assessment Date Thrive assessed 08/23/22 02/09/24 10:27 Const Other: Patient sitting in motor operated wheelchair, in no acute distress General: cooperative, comfortable and no acute distress Orientation/consciousness: patient oriented x3 HENMT Head: Yes normocephalic Eyes General: appearance normal, both eyes and all related structures Neck Neck: Yes supple Resp Effort & Inspection: normal respiratory effort, no cough and no stridor Cardio Rhythm: regular rhythm Heart sounds: S1 normal heart sound present and S2 normal heart sound present Skin General skin exam: turgor normal Neuro General: patient oriented x3, tone normal and moves all extremities Extrem Right lower extremity: no edema Left lower extremity: no edema Assessment and Plan Assessment & Plan (1) Bilateral leg pain: Code(s): M79.604 - Pain in right leg; M79.605 - Pain in left leg (2) Recurrent deep vein thrombosis (DVT): Code(s): I82.409 - Acute embolism and thrombosis of unspecified deep veins of unspecified lower extremity (3) Muscle spasms of both lower extremities: Code(s): M62.838 - Other muscle spasm (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: Code(s): Z92.29 - Personal history of other drug therapy (5) Constipation by delayed colonic transit: Code(s): K59.01 - Slow transit constipation (6) Anxiety, generalized: Code(s): F41.1 - Generalized anxiety disorder (7) Mobility impaired: Code(s): Z74.09 - Other reduced mobility (8) Major depression, recurrent: Code(s): F33.9 - Major depressive disorder, recurrent, unspecified Qualifiers: Active/Remission status: in partial remission Qualified Code(s): F33.41 - Major depressive disorder, recurrent, in partial remission (9) External hemorrhoids: Code(s): K64.4 - Residual hemorrhoidal skin tags (10) Pain, foot, right, chronic: Code(s): M79.671 - Pain in right foot; G89.29 - Other chronic pain Plan Patient is 63-year-old female with a history of recurrent DVTs on chronic blood thinners Asthma, currently seeing electronic publishing specialist with [facility] Unable to take deep breaths because of pain Which is chronic problem with the patient She was last seen April of last year, then missed her appointment Patient has been having foot surgery right side with [facility] She tells me that she had 5th digit surgery 1st and she has a screw inside, and then she had a surgery for heel spur And then she had a surgery for Achilles tendon Now patient is having difficulty walking because of pain Patient says that she went to [facility] and they have told her that there is nothing much they can do However she might benefit from physical therapy. She said she do not want to go back and is requesting a physical therapy order from me Explained to patient that it will be a better way to do if she go back and have the orthopedic placed the order So that physical therapist can focus on specific part of the foot which is causing the pain. Patient understand and will reach out to orthopedic. She also is dependent on electronic mobility device Which is very old We have done paperwork twice but she has not been able to get it still I have placed a referral to school library media specialist so they can evaluate and help patient in that regard. Anxiety stable patient is taking buspirone as needed She is also on gabapentin 600 mg which she takes due to pain in her legs, patient is also taking that as needed. She has not gotten refill on that medication since March of last year She also take muscle relaxer for leg muscle spasms Blood pressure is controlled She has external hemorrhoids which are bothering her these days, patient is trying to avoid constipation Asthma management through electronic publishing specialist [facility] She is due for labs order placed to be done today patient is fasting. 42 minute spent in care of this patient including [id number], reviewing orthopedic notes charting, Coordination care Orders: Orders Complete Blood Count Auto Diff Today F33.9 - Major depressive disorder, recurrent, unspecified, F41.1 - Generalized anxiety disorder, I82.409 - Acute embolism and thrombosis of unspecified deep veins of unspecified lower extremity, K59.01 - Slow transit constipation, K64.4 - Residual hemorrhoidal skin tags, M62.838 - Other muscle spasm, M79.604 - Pain in right leg, M79.605 - Pain in left leg, Z74.09 - Other reduced mobility, Z92.29 - Personal history of other drug therapy Vitamin D 25-OH (D2 and D3) Today F33.9 - Major depressive disorder, recurrent, unspecified, F41.1 - Generalized anxiety disorder, I82.409 - Acute embolism and thrombosis of unspecified deep veins of unspecified lower extremity, K59.01 - Slow transit constipation, K64.4 - Residual hemorrhoidal skin tags, M62.838 - Other muscle spasm, M79.604 - Pain in right leg, M79.605 - Pain in left leg, Z74.09 - Other reduced mobility, Z92.29 - Personal history of other drug therapy Comprehensive [place]. Panel Fast Today F33.9 - Major depressive disorder, recur rent, unspecified, F41.1 - Generalized anxiety disorder, I82.409 - Acute embolism and thrombosis of unspecified deep veins of unspecified lower extremity, K59.01 - Slow transit constipation, M62.838 - Other muscle spasm, M79.604 - Pain in right leg, M79.605 - Pain in left leg, Z74.09 - Other reduced mobility TSH reflex Free T4 Today F33.9 - Major depressive disorder, recurrent, unspecified, F41.1 - Generalized anxiety disorder, I82.409 - Acute embolism and thrombosis of unspecified deep veins of unspecified lower extremity, K59.01 - Slow transit constipation, K64.4 - Residual hemorrhoidal skin tags, M62.838 - Other muscle spasm, M79.604 - Pain in right leg, M79.605 - Pain in left leg, Z74.09 - Other reduced mobility, Z92.29 - Personal history of other drug therapy Lipid Panel Today F33.9 - Major depressive disorder, recurrent, unspecified, F41.1 - Generalized anxiety disorder, I82.409 - Acute embolism and thrombosis of unspecified deep veins of unspecified lower extremity, K59.01 - Slow transit constipation, M62.838 - Other muscle spasm, M79.604 - Pain in right leg, M79.605 - Pain in left leg, Z74.09 - Other reduced mobility Referrals Physical Medicine and Rehabilitation Referral Z74.09 - Other reduced mobility Coding Level of Care Code Est Pt Level 5 (39454) Complex EM visit Add On G2211 Diagnoses Bilateral leg pain M79.604; M79.605 Recurrent deep vein thrombosis (DVT) I82.409 Muscle spasms of both lower extremities M62.838 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
== END 2024-02-09 13:00 | disposition home or self-care (01) ==
PROVIDERS: PCP Internal Medicine; Visit Provider Internal Medicine
DX: M79.604 Pain in right leg (principal); M79.605 Pain in left leg; I82.409 Acute embolism and thrombosis of unspecified deep veins of unspecified lower extremity; F33.41 Major depressive disorder, recurrent, in partial remission; M62.838 Other muscle spasm; Z92.29 Personal history of other drug therapy; K59.01 Slow transit constipation; F41.1 Generalized anxiety disorder; Z74.09 Other reduced mobility; K64.4 Residual hemorrhoidal skin tags; M79.671 Pain in right foot; G89.29 Other chronic pain
CPT/HCPCS: 99215; G2211

== ENCOUNTER 2024-02-09 10:48 | Outpatient (REF) | payer MEDICARE, MEDICAID, SELFPAY ==
[2024-02-09 13:03] LABS: MANUAL DIFF FLAG NO
[2024-02-09 13:24] LABS: Basophils Absolute Auto 0.1 X10*3/uL (0.0-0.2); Basophils Percent Auto 1.2 % (0-2); Eosinophils Absolute Auto 0.4 X10*3/uL (0.0-0.4); Eosinophils Percent Auto 5.1 % (0-4); Hematocrit 49.4 % (37.0-47.0); Hemoglobin 16.3 g/dl (12.0-16.0); Imm Gran Abs Auto 0.03 X10*3/uL (0.00-0.03); Imm Gran Pct Auto 0.4 % (0.0-0.4); Lymphocytes Absolute Auto 2.6 X10*3/uL (1.2-4.9); Lymphocytes Percent Auto 35.4 % (20-40); Mean Corpuscular Hemoglobin 30.9 pg (27.0-33.0); Mean Corpuscular Volume 93.6 fL (80.0-98.0); Mean Platelet Volume 12.1 fL (9.4-12.3); Monocytes Absolute Auto 0.7 X10*3/uL (0.1-1.2); Monocytes Percent Auto 9.7 % (2-11); Neutrophils Absolute Auto 3.5 x10*3/uL (2.0-8.3); Neutrophils Percent Auto 48.2 % (45-73); Platelet Count 226 X10*3/uL (160-400); Red Blood Count 5.28 X10*6/uL (4.20-5.50); Red Cell Distribution Width 13.6 % (11.0-16.0); White Blood Count 7.3 X10*3/uL (4.8-10.8)
[2024-02-09 14:16] LABS: Alanine Aminotransferase 52 U/L (0-31); Albumin Level 4.1 g/dL (3.5-5.0); Alkaline Phosphatase 63 U/L (39-117); Anion Gap 15 (12-20); Aspartate Amino Transferase 39 U/L (5-31); Bilirubin Total 0.5 mg/dL (0.0-1.0); Blood Urea Nitrogen 13 mg/dL (9-16); Calcium 9.5 mg/dL (8.4-10.2); Carbon Dioxide 22 mmol/L (22-29); Chloride 108 mmol/L (96-108); Cholesterol 233 mg/dL (<200); Estimated Glomerular Filt Rate > 60; Glucose Fasting 106 mg/dL (60-99); HDL Cholesterol 47 mg/dL (>40); LDL Cholesterol Calculated 145 mg/dL (<100); Potassium 4.3 mmol/L (3.3-5.1); Sodium 141 mmol/L (135-145); TSH reflex Free T4 1.82 uIU/mL (0.32-4.0); Triglycerides 206 mg/dL (<150)
[2024-02-13 16:14] LABS: Vitamin D 25-OH, D2 <4 ng/mL; Vitamin D 25-OH, D3 18 ng/mL; Vitamin D 25-OH, Total 18 ng/mL (30-100)
== END 2024-02-09 10:49 | disposition home or self-care (01) ==
LOC: HO.HMGCLDS 10:48
PROVIDERS: PCP Internal Medicine; Visit Provider Internal Medicine
DX: Z13.6 Encounter for screening for cardiovascular disorders (principal); M62.838 Other muscle spasm; M79.604 Pain in right leg; M79.605 Pain in left leg; K59.01 Slow transit constipation; F41.1 Generalized anxiety disorder; F33.9 Major depressive disorder, recurrent, unspecified; K64.4 Residual hemorrhoidal skin tags; Z74.09 Other reduced mobility; Z92.29 Personal history of other drug therapy; Z86.718 Personal history of other venous thrombosis and embolism
CPT/HCPCS: 36415; 80053; 80061; 82306; 84443; 85025

== ENCOUNTER 2024-04-19 07:39 | Outpatient (AMB) | payer MEDICARE, MEDICAID, SELFPAY ==
--- NOTE | 2024-04-19 07:55 | A.OFFPC_ITS ---
Intake Visit Reasons: not able to sleep // [phone] Allergies esomeprazole [Nexium] Allergy (Unknown, Verified 02/09/24 10:26) Unknown iron Allergy (Unknown, Verified 02/09/24 10:) I go blind oxycodone Allergy (Unknown, Verified 02/09/24 10:) Unknown tramadol Allergy (Unknown, Verified 02/09/24 10:26) itching stomach pain headaches warfarin Adverse Reaction (Unknown, Verified 02/09/24 10:) gum and nose bleeds Contrast dye Allergy (Unknown, Uncoded 02/05/24 15:18) itching, nosebleeds Medication List - Last Reconciled 04/19/24 by Phil Lopez MD albuterol sulfate 2.5 mg (3 mL) inhalation QID PRN apixaban (Eliquis) 2.5 mg PO BID buspirone 5 mg PO .q am PRN 30 days cyclobenzaprine 5 mg PO BEDTIME 30 days fluticasone furoate-vilanterol 200-25 mcg/dose (Breo Ellipta) 1 ea PO DAILY gabapentin 600 mg PO BID 90 days hydrocortisone acetate 25 mg [place] BID 6 days sennosides-docusate sodium 8.6-50 mg (Senokot-S) 1 tab-cap PO BEDTIME 30 days tizanidine 2 mg PO Q8H PRN Ventolin HFA 90 mcg/actuation (albuterol sulfate) 1 inh inhalation QID PRN 30 days NS Tobacco use date assessed: 02/09/24 Dental Screening Dental Screen Date: 02/09/24 HPI not able to sleep // [phone] HPI Details Patient is a 63-year-old female this is a telemedicine video conference Patient says for the past 4 days she has been having excessive sweating, chills, unable to sleep Irritability of mood, patient says that she is feeling terrible I see that she had some labs done in January I have ordered more labs with the patient and added hormonal levels as well She has no other symptoms to suggest any signs of infection I have sent Ambien 5 mg tablets that she may take at night as a sleep aid Patient will come into the office next week for evaluation. 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 Mother HTN (hypertension) Diabetes mellitus Brother No problems noted. Sister No problems noted. Sister No problems noted. Son No problems noted. Son No problems noted. Son No problems noted. Son No problems noted. Son No problems noted. Social History Housing: House Patient Tobacco Use Status: Never used Tobacco e-Cigarette/Vaping Use: Never Used Second Hand Smoke Exposure: No Current occupational status: disabled Cognitive needs: No Hearing needs: No Vision needs: No Questionnaire Thrive Questionnaire Date Thrive assessed: 08/23/22 Review of Systems ENT Denies epistaxis and Denies nasal discharge Card Denies chest pain Resp Denies chest congestion, Denies cough and Denies hemoptysis GI Denies diarrhea and Denies nausea Skin/Breast Denies rash Neuro Reports no additional complaints Psych Reports no additional complaints Endo Reports no additional complaints Physical exam (Primary Care) Tobacco/Smoking Status: Tobacco use Status Tobacco use date assessed 02/09/24 04/19/24 07:57 Patient Tobacco Use Status Never used Tobacco 04/19/24 07:57 e-Cigarette/Vaping Use Never Used 04/19/24 07:57 Thrive Assessment: Date of Thrive Assessment Date Thrive assessed 08/23/22 04/19/24 07:57 Telehealth Telehealth Telehealth Platform: [facility] Location of provider rendering services: practice address Location of patient: address on file Patient Identification confirmed using: Name, : Yes Telehealth method: video Patient verbally consented to treatment: Yes Patient verbally consented to billing insurance company: Yes Patient informed of any privacy concerns related to visit: Yes Assessment and Plan Assessment & Plan (1) Unable to sleep: Code(s): G47.00 - Insomnia, unspecified Qualifiers: Insomnia type: unspecified Qualified Code(s): G47.00 - Insomnia, unspecified (2) Irritable mood: Code(s): R45.4 - Irritability and anger (3) Chills: Code(s): R68.83 - Chills (without fever) (4) Hot flashes: Code(s): R23.2 - Flushing (5) Excessive sweating: Code(s): R61 - Generalized hyperhidrosis Plan Patient is a 63-year-old female this is a telemedicine video conference Patient says for the past 4 days she has been having excessive sweating, chills, unable to sleep Irritability of mood, patient says that she is feeling terrible I see that she had some labs done in January I have ordered more labs with the patient and added hormonal levels as well She has no other symptoms to suggest any signs of infection She says that she has been checking her temperature which is running around 98 F I have sent Ambien 5 mg tablets that she may take at night as a sleep aid Patient will come into the office next week for evaluation. 30 minute spent in care of this patient including reviewing chart previous labs [id number] with the patient, coordination of care Orders: Orders TSH reflex Free T4 Today G47.00 - Insomnia, unspecified, R23.2 - Flushing, R45.4 - Irritability and anger, R61 - Generalized hyperhidrosis, R68.83 - Chills (without fever) UA CC w/rflx Micro + Cult Today G47.00 - Insomnia, unspecified, R23.2 - Flushing, R45.4 - Irritability and anger, R61 - Generalized hyperhidrosis, R68.83 - Chills (without fever) Vitamin D 25-OH (D2 and D3) Today G47.00 - Insomnia, unspecified, R23.2 - Flushing, R45.4 - Irritability and anger, R61 - Generalized hyperhidrosis, R68.83 - Chills (without fever) Vitamin B12 Today G47.00 - Insomnia, unspecified, R23.2 - Flushing, R45.4 - Irritability and anger, R61 - Generalized hyperhidrosis, R68.83 - Chills (without fever) LDL Cholesterol Direct Today G47.00 - Insomnia, unspecified, R23.2 - Flushing, R45.4 - Irritability and anger, R61 - Generalized hyperhidrosis, R68.83 - Chills (without fever) Lutenizing Hormone Today G47.00 - Insomnia, unspecified, R23.2 - Flushing, R45.4 - Irritability and anger, R61 - Generalized hyperhidrosis, R68.83 - Chills (without fever) Hemoglobin A1c Today G47.00 - Insomnia, unspecified, R23.2 - Flushing, R45.4 - Irritability and anger, R61 - Generalized hyperhidrosis, R68.83 - Chills (without fever) Complete Blood Count Auto Diff Today G47.00 - Insomnia, unspecified, R23.2 - Flushing, R45.4 - Irritability and anger, R61 - Generalized hyperhidrosis, R68.83 - Chills (without fever) Comprehensive Met. Panel Today G47.00 - Insomnia, unspecified, R23.2 - Flushing, R45.4 - Irritability and anger, R61 - Generalized hyperhidrosis, R68.83 - Chills (without fever) Follicle Stimulating Hormone Today G47.00 - Insomnia, unspecified, R23.2 - Flushing, R45.4 - Irritability and anger, R61 - Generalized hyperhidrosis, R68.83 - Chills (without fever) Magnesium Today G47.00 - Insomnia, unspecified, R23.2 - Flushing, R45.4 - Irritability and anger, R61 - Generalized hyperhidrosis, R68.83 - Chills (without fever) Medications: New zolpidem (Ambien) 5 mg PO BEDTIME PRN 7 tabs 0RF sleep 7 days Coding Level of Care Code Tele Est Pt Level 4 (51327) Diagnoses Insomnia, unspecified type G47.00 Insomnia type: unspecified Irritable mood R45.4 Chills R68.83 Hot flashes R23.2 Excessive sweating R61
== END 2024-04-19 08:34 | disposition home or self-care (01) ==
LOC: HO.HMGC 07:39
PROVIDERS: PCP Internal Medicine; Visit Provider Internal Medicine
DX: G47.00 Insomnia, unspecified (principal); R45.4 Irritability and anger; R68.83 Chills (without fever); R23.2 Flushing; R61 Generalized hyperhidrosis
CPT/HCPCS: 99214

== ENCOUNTER 2024-04-19 13:51 | Outpatient (REF) | payer MEDICARE, MEDICAID, SELFPAY ==
[2024-04-19 16:08] LABS: MANUAL DIFF FLAG NO
[2024-04-19 16:15] LABS: Basophils Absolute Auto 0.1 X10*3/uL (0.0-0.2); Basophils Percent Auto 0.8 % (0-2); Eosinophils Absolute Auto 0.3 X10*3/uL (0.0-0.4); Eosinophils Percent Auto 3.8 % (0-4); Hematocrit 49.7 % (37.0-47.0); Hemoglobin 16.4 g/dl (12.0-16.0); Imm Gran Abs Auto 0.03 X10*3/uL (0.00-0.03); Imm Gran Pct Auto 0.5 % (0.0-0.4); Lymphocytes Absolute Auto 2.1 X10*3/uL (1.2-4.9); Lymphocytes Percent Auto 32.5 % (20-40); Mean Corpuscular Hemoglobin 30.4 pg (27.0-33.0); Mean Corpuscular Volume 92.2 fL (80.0-98.0); Monocytes Absolute Auto 0.5 X10*3/uL (0.1-1.2); Monocytes Percent Auto 7.7 % (2-11); Neutrophils Absolute Auto 3.6 x10*3/uL (2.0-8.3); Neutrophils Percent Auto 54.7 % (45-73); Platelet Count 197 X10*3/uL (160-400); Red Blood Count 5.39 X10*6/uL (4.20-5.50); Red Cell Distribution Width 12.9 % (11.0-16.0); White Blood Count 6.6 X10*3/uL (4.8-10.8)
[2024-04-19 16:23] LABS: Appearance Urine Clear; Color Urine Yellow; Glucose Urine UA Negative (Negative); Leukocyte Esterase Urine Negative (Negative); Nitrite Urine Negative (Negative); PH 6.5 (5.0-9.0); Urine Blood Negative (Negative); Urine Ketones Negative (Negative); Urine Protein Negative (Neg-Trace)
[2024-04-20 01:30] LABS: Alanine Aminotransferase 57 U/L (0-31); Albumin Level 4.1 g/dL (3.5-5.0); Alkaline Phosphatase 62 U/L (39-117); Anion Gap 13 (12-20); Aspartate Amino Transferase 40 U/L (5-31); Bilirubin Total 0.6 mg/dL (0.0-1.0); Blood Urea Nitrogen 11 mg/dL (9-16); Calcium 9.4 mg/dL (8.4-10.2); Carbon Dioxide 23 mmol/L (22-29); Chloride 106 mmol/L (96-108); Estimated Glomerular Filt Rate > 60; Glucose Random 150 mg/dL (60-115); Magnesium 2.3 mg/dL (1.6-2.6); Sodium 138 mmol/L (135-145); Total Protein 7.4 g/dL (6.5-8.0)
[2024-04-20 01:55] LABS: TSH reflex Free T4 1.63 uIU/mL (0.32-4.0)
[2024-04-20 02:32] LABS: Vitamin B12 684 pg/mL (200-900)
[2024-04-20 04:00] LABS: Estimated Average Glucose 123 mg/dL; Hemoglobin A1c % 5.9 % (<6.0)
[2024-04-20 09:58] LABS: Lutenizing Hormone 24.7 mIU/mL
[2024-04-20 12:48] LABS: LDL Cholesterol Direct 149 mg/dL (<100)
[2024-04-24 13:23] LABS: Vitamin D 25-OH, D2 <4 ng/mL; Vitamin D 25-OH, D3 15 ng/mL; Vitamin D 25-OH, Total 15 ng/mL (30-100)
== END 2024-04-19 13:52 | disposition home or self-care (01) ==
LOC: HO.HMGCLDS 13:51
PROVIDERS: PCP Internal Medicine; Visit Provider Internal Medicine
DX: R61 Generalized hyperhidrosis (principal); R25.2 Cramp and spasm; R68.83 Chills (without fever); R45.4 Irritability and anger; G47.00 Insomnia, unspecified
CPT/HCPCS: 36415; 80053; 81003; 82306; 82607; 83001; 83002; 83036; 83721; 83735; 84443; 85025

== ENCOUNTER 2024-04-24 13:07 | Outpatient (AMB) | payer MEDICARE, MEDICAID, SELFPAY ==
--- NOTE | 2024-04-24 13:12 | MHC.PC.OV ---
Vital Signs 04/24/24 13:13 Height 5 ft 3 in BMI Reason not done Patient refused/unable BP 114/80 Blood Pressure Location Rt brachial Position Sitting Pulse 78 Pulse Source Pulse Oximeter Pulse Oximetry (%) 98 Oxygen Delivery Method Room Air Intake Visit Reasons: 1 wk F/u~ Allergies esomeprazole [Nexium] Allergy (Unknown, Verified 04/24/24 13:16) Unknown iron Allergy (Unknown, Verified 04/24/24 13:16) I go blind oxycodone Allergy (Unknown, Verified 04/24/24 13:16) Unknown tramadol Allergy (Unknown, Verified 04/24/24 13:16) itching stomach pain headaches warfarin Adverse Reaction (Unknown, Verified 04/24/24 13:16) gum and nose bleeds Contrast dye Allergy (Unknown, Uncoded 02/05/24 15:18) itching, nosebleeds Medication List - Last Reconciled 04/24/24 by Phil Lopez MD albuterol sulfate 2.5 mg (3 mL) inhalation QID PRN apixaban (Eliquis) 2.5 mg PO BID buspirone 5 mg PO .q am PRN 30 days fluticasone furoate-vilanterol 200-25 mcg/dose (Breo Ellipta) 1 ea PO DAILY gabapentin 600 mg PO BID 90 days hydrocortisone acetate 25 mg [place] BID 6 days sennosides-docusate sodium 8.6-50 mg (Senokot-S) 1 tab-cap PO BEDTIME 30 days tizanidine 2 mg PO Q8H PRN Ventolin HFA 90 mcg/actuation (albuterol sulfate) 1 inh inhalation QID PRN 30 days NS zolpidem (Ambien) 5 mg PO BEDTIME PRN 7 days Tobacco use date assessed: 04/24/24 Dental Screening Dental Screen Date: 04/24/24 Did you have a dental visit in the last 12 months?: Yes Did you have a dental problem in the last 6 months where you did not have access to dental care?: No Was dental information given to patient?: Patient has dentist HPI 1 wk F/u~ HPI Details Continued to having hot flashes and difficulty sleeping at night Zolpidem 5 mg did not help her Labs done recently reviewed with the patient I do not see any indication of any new findings Physical exam is benign and at her baseline Continued to have diarrhea, never had colonoscopy Would like to see Gastroenterology [facility], referral placed I am prescribing lorazepam 1 mg to be taken at night so she can sleep Mood swings could be lack of sleep headache also can be due to lack of sleep Another cause could be a viral illness as she is having diarrhea for the past 5 days That is when her symptoms started We will book a telemedicine visit in 2 weeks to follow-up on how she is doing [facility] Medical History Asthma 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 Mother HTN (hypertension) Diabetes mellitus Brother No problems noted. Sister No problems noted. Sister No problems noted. Son No problems noted. Son No problems noted. Son No problems noted. Son No problems noted. Son No problems noted. Social History Housing: House Patient Tobacco Use Status: Never used Tobacco e-Cigarette/Vaping Use: Never Used Second Hand Smoke Exposure: No service: No Current occupational status: disabled Cognitive needs: No Hearing needs: No Vision needs: No Questionnaire PHQ-9 Over the last 2 weeks, how often have you been bothered by any of the following problems? 1. Little interest or pleasure in doing things: several days 2. Feeling down, depressed, or hopeless: several days 3. Trouble falling or staying asleep, or sleeping too much: nearly every day 4. Feeling tired or having little energy: nearly every day 5. Poor appetite or overeating: nearly every day 6. Feeling bad about yourself - or that you are a failure or have let yourself or your family down: nearly every day 7. Trouble concentrating on things, such as reading the newspaper or watching television: not at all 8. Moving or speaking so slowly that other people could have noticed. Or the opposite - being so fidgety or restless that you have been moving around a lot more than usual: not at all 9. Thoughts that you would be better off or of hurting yourself in some way: not at all Total score: 14 Depression Screening Interpretation: Positive Depression Screening Follow-up: Existing condition and In treatment Depression Screening Done: Yes 08541 - PHQ-9 Billing: Yes Source: Developed by Drs. Karan Meléndez, Mara Scales, Oscar Bennett and colleagues, with an educational robinson from [employer]. Thrive Questionnaire Date Thrive assessed: 04/24/24 I am a: Patient What is your living situation today?: I have a steady place to live Within the past 12 months, did the food you bought not last and you didn't have the money to get more?: Never true Within the past 12 months, did you worry whether your food would run out before you got money to buy more?: Never true Do you have trouble paying for medicines?: No Do you have trouble getting transportation to medical appointments?: No Do you have trouble paying your heating and electricity bill?: No Do you have trouble taking care of your child, family member or friend?: No Do you have trouble with day-to-day activities such as bathing, preparing meals, shopping, managing finances, etc.?: No Are you currently unemployed and looking for a job?: No Are you interested in more education?: No Please select the resources that you would like help with: None Currently or been in a relationship where the following occur: No concerns reported THRIVE Score: 0 AUDIT C Alcohol Use Questionnaire (AUDIT-C) 1. How often do you have a drink containing alcohol?: Never 3. How often do you have six or more drinks on one occasion?: Never Total Score: 0 Score Reviewed/Action Taken: Yes OANH-7 AMB Questionnaire OANH-7 Date OANH - 7 assessed: 04/24/24 Feeling nervous, anxious, or on edge: 0 = Not at all Not being able to stop or control worryin = Not at all Worrying too much about different things: 0 = Not at all Trouble relaxin = Not at all Being so restless that it is hard to sit still: 0 = Not at all Becoming easily annoyed or irritable: 0 = Not at all Feeling afraid as if something awful might happen: 0 = Not at all Total OANH-7 score (0-4 normal; 5-9 mild; 10-14 moderate; 15-21 severe): 0 Source: Developed by Drs. Karan Meléndez, Mara Scales, Oscar Bennett and colleagues, with an educational robinson from [employer]. OANH-7 Assessment Billing OANH-7 Assessment Tool: OANH-7 Assessment 32680 Review of Systems ENT Denies epistaxis and Denies nasal discharge Card Denies chest pain Resp Denies chest congestion, Denies cough and Denies hemoptysis GI Denies diarrhea and Denies nausea Skin/Breast Denies rash Neuro Reports no additional complaints Psych Reports no additional complaints Endo Reports no additional complaints Physical exam (Primary Care) Vital Signs: Last Vital Signs Pulse 78 04/24/24 13:13 BP 114/80 04/24/24 13:13 Pulse Ox 98 04/24/24 13:13 Oxygen Delivery Method Room Air 04/24/24 13:13 Tobacco/Smoking Status: Tobacco use Status Tobacco use date assessed 04/24/24 04/24/24 13:17 Patient Tobacco Use Status Never used Tobacco 04/24/24 13:17 e-Cigarette/Vaping Use Never Used 04/24/24 13:17 PHQ-9: PHQ-9 Score PHQ-9: Total score 14 04/24/24 13:34 Depression Screening Interpretation: Positive Depression Screening Follow-up: Existing condition and In treatment Thrive Assessment: Date of Thrive Assessment Date Thrive assessed 04/24/24 04/24/24 13:17 Currently or been in a relationship where the following occur: No concerns reported Const Other: Patient sitting in motor operated wheelchair, in no acute distress General: cooperative, comfortable and no acute distress Orientation/consciousness: patient oriented x3 HENNM Head: Yes normocephalic Eyes General: appearance normal, both eyes and all related structures Neck Neck: Yes supple Resp Effort & Inspection: normal respiratory effort, no cough and no stridor Cardio Rhythm: regular rhythm Heart sounds: S1 normal heart sound present and S2 normal heart sound present Skin General skin exam: turgor normal Neuro General: patient oriented x3, tone normal and moves all extremities Extrem Right lower extremity: no edema Left lower extremity: no edema Assessment and Plan Assessment & Plan (1) Diarrhea: Code(s): R19.7 - Diarrhea, unspecified Qualifiers: Diarrhea type: unspecified type Qualified Code(s): R19.7 - Diarrhea, unspecified (2) Unable to sleep: Code(s): G47.00 - Insomnia, unspecified Qualifiers: Insomnia type: unspecified Qualified Code(s): G47.00 - Insomnia, unspecified (3) Irritable mood: Code(s): R45.4 - Irritability and anger (4) Chills: Code(s): R68.83 - Chills (without fever) (5) Hot flashes: Code(s): R23.2 - Flushing (6) Excessive sweating: Code(s): R61 - Generalized hyperhidrosis (7) Colon cancer screening: Code(s): Z12.11 - Encounter for screening for malignant neoplasm of colon (8) Major depression, recurrent: Code(s): F33.9 - Major depressive disorder, recurrent, unspecified Qualifiers: Active/Remission status: in partial remission Qualified Code(s): F33.41 - Major depressive disorder, recurrent, in partial remission (9) Hx of shelter use of blood thinners: Code(s): Z92.29 - Personal history of other drug therapy (10) Recurrent deep vein thrombosis (DVT): Code(s): I82.409 - Acute embolism and thrombosis of unspecified deep veins of unspecified lower extremity (11) Muscle spasms of both lower extremities: Code(s): M62.838 - Other muscle spasm Plan Patient is 63-year-old female with history of recurrent DVTs on chronic blood thinners History of Asthma, currently seeing art specialist with [facility] Unable to take deep breaths because of pain Chronic pain lower extremity with spasms due to recurrent DVTs On high-dose gabapentin 600 mg at night and muscle relaxer as needed History of anxiety and is taking buspirone 5 mg as needed Chronic constipation on Senokot s p.r.n. Continued to having hot flashes and difficulty sleeping at night Zolpidem 5 mg did not help her Labs done recently reviewed with the patient I do not see any indication of any new findings Physical exam is benign and at her baseline Continued to have diarrhea, never had colonoscopy Would like to see Gastroenterology [facility], referral placed I am prescribing lorazepam 1 mg to be taken at night so she can sleep Mood swings could be lack of sleep headache also can be due to lack of sleep Another cause could be a viral illness as she is having diarrhea for the past 5 days That is when her symptoms started We will book a telemedicine visit in 2 weeks to follow-up on how she is doing Total time spent 45 minute including going over charts, lab reports, [id number] with the patient and significant other Charting and coordination of care Orders: Referrals Gastroenterology Referral R19.7 - Diarrhea, unspecified, Z12.11 - Encounter for screening for malignant neoplasm of colon Medications: New lorazepam 1 mg PO BEDTIME PRN 14 tabs 0RF anxiety Coding Level of Care Code Est Pt Level 5 (88037) Diagnoses Diarrhea, unspecified type R19.7 Diarrhea type: unspecified type Insomnia, unspecified type G47.00 Insomnia type: unspecified Irritable mood R45.4 Chills R68.83 Hot flashes R23.2 Excessive sweating R61 Colon cancer screening Z12.11 Recurrent major depressive disorder, in partial remission F33.41 Active/Remission status: in partial remission Hx of shelter use of blood thinners Z92.29 Recurrent deep vein thrombosis (DVT) I82.409 Muscle spasms of both lower extremities M62.838 Additional Codes OANH-7 Assessment Billing - OANH-7 Assessment Tool: OANH-7 Assessment 79603 ([id number])
[2024-04-24 13:13] VITALS: BP 114/80; PULSE 78; O2SAT 98
== END 2024-04-24 14:13 | disposition home or self-care (01) ==
PROVIDERS: PCP Internal Medicine; Visit Provider Internal Medicine
DX: R19.7 Diarrhea, unspecified (principal); F33.41 Major depressive disorder, recurrent, in partial remission; I82.409 Acute embolism and thrombosis of unspecified deep veins of unspecified lower extremity; G47.00 Insomnia, unspecified; R68.83 Chills (without fever); R45.4 Irritability and anger; R23.2 Flushing; R61 Generalized hyperhidrosis; Z12.11 Encounter for screening for malignant neoplasm of colon; Z92.29 Personal history of other drug therapy; M62.838 Other muscle spasm
CPT/HCPCS: 99215

== ENCOUNTER 2024-07-05 13:00 | Outpatient (AMB) | payer MEDICARE, MEDICAID, SELFPAY ==
--- NOTE | 2024-07-05 13:02 | A.OFFPC_ITS ---
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 Accompanied by: Self / Same As Patient Allergies esomeprazole [Nexium] Allergy (Unknown, Verified 07/05/24 13:03) Unknown iron Allergy (Unknown, Verified 07/05/24 13:03) I go blind oxycodone Allergy (Unknown, Verified 07/05/24 13:03) Unknown tramadol Allergy (Unknown, Verified 07/05/24 13:03) itching stomach pain headaches warfarin Adverse Reaction (Unknown, Verified 07/05/24 13:03) gum and nose bleeds Contrast dye Allergy (Unknown, Uncoded 02/05/24 15:18) itching, nosebleeds Medication List - Last Reconciled 07/05/24 by Phil Lopez MD albuterol sulfate 2.5 mg (3 mL) inhalation QID PRN apixaban (Eliquis) 2.5 mg PO BID buspirone 5 mg PO .q am PRN 30 days cholecalciferol (vitamin D3) 25 mcg PO DAILY 90 days fluticasone furoate-vilanterol 200-25 mcg/dose (Breo Ellipta) 1 ea PO DAILY gabapentin 600 mg PO BID 90 days hydrocortisone acetate 25 mg [place] BID 6 days lorazepam 1 mg PO BEDTIME PRN sennosides-docusate sodium 8.6-50 mg (Senokot-S) 1 tab-cap PO BEDTIME 30 days tizanidine 2 mg PO Q8H PRN Ventolin HFA 90 mcg/actuation (albuterol sulfate) 1 inh inhalation QID PRN 30 days NS zolpidem (Ambien) 5 mg PO BEDTIME PRN 7 days Tobacco use date assessed: 04/24/24 Fall risk assessment: No Falls in past year Last assessed Fall Risk: 07/05/24 Dental Screening Dental Screen Date: 04/24/24 HPI Back pain 2 HPI0 Details Patient is 64-year-old female came in today as she fell 2 weeks ago while getting a mail out Patient has chronic bilateral leg pain due to recurrent DVTs in the past She uses power wheelchair for mobility She is able to walk a little and also climb stairs when she does that very slowly She tells me that her home is 3 stories and her bedroom is upstairs But since she has fallen she has been sleeping downstairs She also had pain lower back right side which has improved after taking muscle relaxer She need a referral to [facility] wheelchair assessment placed To get a new power wheels Referral placed I am ordering x-ray of her knee, I offered her orthopedic appointment which she declined at this time. Medication list reviewed Patient is on buspirone for anxiety as needed Breo inhaler for asthma Vitamin-D supplement Chronic blood thinners Gabapentin 600 mg b.i.d. 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 Mother HTN (hypertension) Diabetes mellitus Brother No problems noted. Sister No problems noted. Sister No problems noted. Son No problems noted. Son No problems noted. Son No problems noted. Son No problems noted. Son No problems noted. Social History Housing: House Patient Tobacco Use Status: Never used Tobacco e-Cigarette/Vaping Use: Never Used Second Hand Smoke Exposure: No service: No Current occupational status: disabled Cognitive needs: No Hearing needs: No Vision needs: No Questionnaire Thrive Questionnaire Date Thrive assessed: 04/24/24 I am a: Patient What is your living situation today?: I choose not to answer this question Within the past 12 months, did the food you bought not last and you didn't have the money to get more?: I choose not to answer this question Within the past 12 months, did you worry whether your food would run out before you got money to buy more?: I choose not to answer this question Do you have trouble paying for medicines?: I choose not to answer this question Do you have trouble getting transportation to medical appointments?: I choose not to answer this question Do you have trouble paying your heating and electricity bill?: I choose not to answer this question Do you have trouble taking care of your child, family member or friend?: I choose not to answer this question Do you have trouble with day-to-day activities such as bathing, preparing meals, shopping, managing finances, etc.?: I choose not to answer this question Are you interested in more education?: I choose not to answer this question Please select the resources that you would like help with: None Currently or been in a relationship where the following occur: I choose not to answer THRIVE Score: 0 AUDIT C Alcohol Use Questionnaire (AUDIT-C) 1. How often do you have a drink containing alcohol?: Never Total Score: 0 OANH-7 AMB Questionnaire OANH-7 Date OANH - 7 assessed: 04/24/24 Feeling nervous, anxious, or on edge: 0 = Not at all Not being able to stop or control worryin = Not at all Worrying too much about different things: 0 = Not at all Trouble relaxin = Not at all Being so restless that it is hard to sit still: 0 = Not at all Becoming easily annoyed or irritable: 0 = Not at all Feeling afraid as if something awful might happen: 0 = Not at all Total OANH-7 score (0-4 normal; 5-9 mild; 10-14 moderate; 15-21 severe): 0 Source: Developed by Drs. Karan Meléndez, Mara Scales, Oscar Bennett and colleagues, with an educational robinson from [employer]. Review of Systems Const Denies chills and Denies fever(s) ENT Denies epistaxis and Denies nasal discharge Card Denies chest pain Resp Denies chest congestion, Denies cough and Denies hemoptysis GI Denies diarrhea and Denies nausea Skin/Breast Denies rash Neuro Reports no additional complaints Psych Reports no additional complaints Endo Reports no additional complaints Physical exam (Primary Care) Vital Signs: Last Vital Signs Pulse 80 07/05/24 13:03 BP 122/76 07/05/24 13:03 Pulse Ox 97 07/05/24 13:03 BMI result Body Mass Index 32.1 Tobacco/Smoking Status: Tobacco use Status Tobacco use date assessed 04/24/24 07/05/24 13:02 Patient Tobacco Use Status Never used Tobacco 07/05/24 13:02 e-Cigarette/Vaping Use Never Used 07/05/24 13:02 Thrive Assessment: Date of Thrive Assessment Date Thrive assessed 04/24/24 07/05/24 13:02 Currently or been in a relationship where the following occur: I choose not to answer Const Other: No distress, patient is sitting on her power wheelchair General: cooperative, comfortable and no acute distress Orientation/consciousness: patient oriented x3 HENMT Head: Yes normocephalic Eyes General: appearance normal, both eyes and all related structures Neck Neck: Yes supple Resp Effort & Inspection: normal respiratory effort, no cough and no stridor Cardio Rhythm: regular rhythm Heart sounds: S1 normal heart sound present and S2 normal heart sound present Back/Spine/Pelvis Back/spine/pelvis image: 2 1. Site of pain in the back Skin General skin exam: turgor normal Neuro General: patient oriented x3, tone normal and moves all extremities Extrem Elbow/forearm/wrist images: 2 1. Generalized right knee pain Right lower extremity: no edema Left lower extremity: no edema Coding Level of Care Code Tele Est Pt Level 5 (31330) Diagnoses Fall, initial encounter W19.XXXA Encounter type: initial encounter Injury of right knee, initial encounter S89.91XA Encounter type: initial encounter Acute right-sided low back pain without sciatica M54.50 Back pain laterality: right Chronicity: acute Sciatica presence: without sciatica Moderate persistent asthma without complication J45.40 Asthma complication type: uncomplicated Mobility impaired Z74.09 Recurrent deep vein thrombosis (DVT) I82.409 Hx of [facility] use of blood thinners Z92.29 Leg pain, bilateral M79.604; M79.605 Muscle spasms of both lower extremities M62.838 Pain, joint, knee, right M25.561 Back muscle spasm M62.830 Anxiety, generalized F41.1 Pain management R52 Assessment & Plan Assessment & Plan (1) Fall: Code(s): W19.XXXA - Unspecified fall, initial encounter Category: Medical Qualifiers: Encounter type: initial encounter Qualified Code(s): W19.XXXA - Unspecified fall, initial encounter (2) Right knee injury: Code(s): S89.91XA - Unspecified injury of right lower leg, initial encounter Category: Medical Qualifiers: Encounter type: initial encounter Qualified Code(s): S89.91XA - Unspecified injury of right lower leg, initial encounter (3) Lower back pain: Code(s): M54.50 - Low back pain, unspecified Category: Medical Qualifiers: Back pain laterality: right Chronicity: acute Sciatica presence: w ithout sciatica Qualified Code(s): M54.50 - Low back pain, unspecified (4) Asthma, moderate persistent: Code(s): J45.40 - Moderate persistent asthma, uncomplicated Category: Medical Qualifiers: Asthma complication type: uncomplicated Qualified Code(s): J45.40 - Moderate persistent asthma, uncomplicated (5) Mobility impaired: Code(s): Z74.09 - Other reduced mobility Category: Medical (6) Recurrent deep vein thrombosis (DVT): Code(s): I82.409 - Acute embolism and thrombosis of unspecified deep veins of unspecified lower extremity Category: Medical (7) 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: Code(s): Z92.29 - Personal history of other drug therapy Category: Medical (8) Leg pain, bilateral: Code(s): M79.604 - Pain in right leg; M79.605 - Pain in left leg Category: Medical (9) Muscle spasms of both lower extremities: Code(s): M62.838 - Other muscle spasm Category: Medical (10) Pain, joint, knee, right: Code(s): M25.561 - Pain in right knee Category: Medical (11) Back muscle spasm: Code(s): M62.830 - Muscle spasm of back Category: Medical (12) Anxiety, generalized: Code(s): F41.1 - Generalized anxiety disorder Category: Medical (13) Pain management: Code(s): R52 - Pain, unspecified Category: Medical Plan Patient is 64-year-old female came in today as she fell 2 weeks ago while getting a mail out Patient has chronic bilateral leg pain due to recurrent DVTs in the past She uses power wheelchair for mobility She is able to walk a little and also climb stairs when she does that very slowly She tells me that her home is 3 stories and her bedroom is upstairs But since she has fallen she has been sleeping downstairs She also had pain lower back right side which has improved after taking muscle relaxer She need a referral to [facility] wheelchair assessment placed To get a new power wheels Referral placed I am ordering x-ray of her knee, I offered her orthopedic appointment which she declined at this time. Medication list reviewed Patient is on buspirone for anxiety as needed Breo inhaler for asthma Vitamin-D supplement Chronic blood thinners Gabapentin 600 mg b.i.d. for chronic leg pain Senokot for constipation Tizanidine 4 muscle spasms in leg and back She will have a follow-up appointment in 3 months 45 minutes spent in care of this patient Including reviewing chart, previous labs, [id number] Coordination of care Orders: Orders 2 XR knee RT 2V Today M25.561 - Pain in right knee Referrals 2 Physical Medicine and Rehabilitation Referral I82.409 - Acute embolism and thrombosis of unspecified deep veins of unspecified lower extremity, M62.838 - Other muscle spasm, M79.604 - Pain in right leg, M79.605 - Pain in left leg, Z74.09 - Other reduced mobility, Z92.29 - Personal history of other drug therapy Medications: New 2 [Power Wheel chair] [address], script needs to say wheelchair clinic evaluation and fax at [phone], Clinic contact at [phone] 1 ea 0RF I82.409 - Acute embolism and thrombosis of unspecified deep veins of unspecified lower extremity, M79.604 - Pain in right leg, M79.605 - Pain in left leg, Z74.09 - Other reduced mobility, Z92.29 - Personal history of other drug therapy Discontinued 2 zolpidem (Ambien) Discontinued Reason: Doctor's Order 5 mg PO BEDTIME 7 days PRN 7 tabs 0RF sleep lorazepam Discontinued Reason: Doctor's Order 1 mg PO BEDTIME PRN 14 tabs 0RF anxiety
[2024-07-05 13:03] VITALS: BP 122/76; PULSE 80; O2SAT 97; BMI 32.1
== END 2024-07-05 13:47 | disposition home or self-care (01) ==
PROVIDERS: PCP Internal Medicine; Visit Provider Internal Medicine
DX: S89.91XA Unspecified injury of right lower leg, initial encounter (principal); W19.XXXA Unspecified fall, initial encounter; I82.409 Acute embolism and thrombosis of unspecified deep veins of unspecified lower extremity; M54.50 Low back pain, unspecified; J45.40 Moderate persistent asthma, uncomplicated; Z74.09 Other reduced mobility; Z92.29 Personal history of other drug therapy; M79.604 Pain in right leg; M79.605 Pain in left leg; M62.838 Other muscle spasm; M25.561 Pain in right knee; M62.830 Muscle spasm of back

== ENCOUNTER → 2024-07-05 13:00 | Outpatient (BNVA) | payer MEDICARE, MEDICAID, SELFPAY | PROVIDERS: PCP Internal Medicine; Visit Provider Internal Medicine ==

== ENCOUNTER 2024-07-05 13:19 | Outpatient (REF) | payer MEDICARE, MEDICAID, SELFPAY | END 2024-07-05 13:20 | disposition home or self-care (01) | LOC: HO.HMGCX 13:19 | PROVIDERS: PCP Internal Medicine; Visit Provider Internal Medicine | DX: M25.561 Pain in right knee (principal); M54.50 Low back pain, unspecified; J45.40 Moderate persistent asthma, uncomplicated; F41.1 Generalized anxiety disorder; M62.830 Muscle spasm of back; M62.838 Other muscle spasm; Z92.29 Personal history of other drug therapy | CPT/HCPCS: 73560; 99212 ==

== ENCOUNTER 2024-10-15 11:05 | Outpatient (AMB) | payer MEDICARE, MEDICAID, SELFPAY ==
[2024-10-15 11:07] VITALS: BP 130/88; PULSE 78; O2SAT 97; BMI 31.7
--- NOTE | 2024-10-15 11:07 | A.OFFPC_ITS ---
Vital Signs 10/15/24 11:07 Height 5 ft 3 in Weight 179 lb 4 oz BMI 31.7 BP 130/88 Blood Pressure Location Lt brachial Position Sitting Pulse 78 Pulse Source Pulse Oximeter Pulse Oximetry (%) 97 Oxygen Delivery Method Room Air Intake Visit Reasons: Requesting for Colonoscopy Allergies esomeprazole [Nexium] Allergy (Unknown, Verified 10/15/24 11:07) Unknown iron Allergy (Unknown, Verified 10/15/24 11:07) I go blind oxycodone Allergy (Unknown, Verified 10/15/24 11:07) Unknown tramadol Allergy (Unknown, Verified 10/15/24 11:07) itching stomach pain headaches warfarin Adverse Reaction (Unknown, Verified 10/15/24 11:07) gum and nose bleeds Contrast dye Allergy (Unknown, Uncoded 02/05/24 15:18) itching, nosebleeds Medication List - Last Reconciled 10/15/24 by Phil Lopez MD albuterol sulfate 2.5 mg (3 mL) inhalation QID PRN apixaban (Eliquis) 2.5 mg PO BID buspirone 5 mg PO .q am PRN 30 days cholecalciferol (vitamin D3) 25 mcg PO DAILY 90 days fluticasone furoate-vilanterol 200-25 mcg/dose (Breo Ellipta) 1 ea PO DAILY gabapentin 600 mg PO BID 90 days hydrocortisone acetate 25 mg AK BID 6 days [Power Wheel chair [address], script needs to say wheelchair clinic evaluation and fax at [phone], Clinic contact at [phone]] sennosides-docusate sodium 8.6-50 mg (Senokot-S) 1 tab-cap PO BEDTIME 30 days tizanidine 2 mg PO Q8H PRN Ventolin HFA 90 mcg/actuation (albuterol sulfate) 1 inh inhalation QID PRN 30 days NS Tobacco use date assessed: 10/15/24 Fall risk assessment: No Falls in past year Last assessed Fall Risk: 10/15/24 Dental Screening Dental Screen Date: 10/15/24 Did you have a dental visit in the last 12 months?: Yes Did you have a dental problem in the last 6 months where you did not have access to dental care?: No Was dental information given to patient?: Patient has dentist HPI Requesting for Colonoscopy HPI Details - The patient is a 64-year-old female pr esenting with anxiety and related symptoms. - She experienced severe anxiety related to personal financial and relationship problems, resulting in disorientation and hospitalization. - There is a noted gastrointestinal conc juhi with suspected intestinal malrotation and a potential mass. As per patient however I do not have any documentation or notes from hospital we will retrieve those But I have placed a referral request to gastroenterology as patient also have other gastrointestinal problems and is due for colonoscopy - History of esophageal spasms treated w ith balloon dilation; denies constipation with episodes of diarrhea. - She is currently not using gabapentin and reports severe leg pain, preferring to avoid medication despite anxiety symptoms. - Lorazepam has been effective in managi ng anxiety previously. - The patient reports feeling abandoned by family and states she experiences anxiety-related physical symptoms. Assessment and Plan 64-year-old female with a history of anx iety and gastrointestinal issues presenting with exacerbated anxiety symptoms. Suspected intestinal malrotation with a potential mass. Musculoskeletal back pain reported, possibly linked to anxiety and medication avoidance. Effective prior use of lorazepam noted, indicating need for mental health support. Patient Instructions - Resume gabapentin at 100 mg twice a da y. - Continue prescribed lorazepam as neede d for anxiety. 0.5 mg lorazepam number 30 tablets sent - Make an appointment with a gastroenter ologist for a colonoscopy. - Return to care team in two weeks for f abdifatah-up on symptoms and medication efficacy. - Engage in therapy sessions as discusse d for anxiety management. Patient met with our behavior health coordinator today so we can help her set therapy and to see psychiatrist for the management of severe anxiety panic disorder Review of Systems - Gastrointestinal: Reports soft stool o ccasionally, denies significant abdominal pain. - Musculoskeletal: Reports severe leg pa in, and back pain with pressure sensation. - Neurological: Reports disorientation e pisode post-anxiety attack. - Psychiatric: Reports anxiety, panic ep isodes, and insomnia. General: No fever no chills neurological: No headaches no dizziness ear nose throat: No sore throat no hearing difficulty no ear pain cardiovascular: No syncope, no chest pain, no palpitations endocrine: No polyuria polydipsia no heat intolerance genitourinary: No dysuria skin: No new complaints Physical Exam general: No acute distress, sitting in wheelchair tearful HEENT: No acute findings neck: Supple respiratory system: Able to talk in full sentences, no audible wheeze no stridor cardiovascular: S1-S2 gastrointestinal: Intestines are crooked, no pain, sometimes soft stool extremities: No new findings 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 Mother HTN (hypertension) Diabetes mellitus Brother No problems noted. Sister No problems noted. Sister No problems noted. Son No problems noted. Son No problems noted. Son No problems noted. Son No problems noted. Son No problems noted. Social History Housing: House Patient Tobacco Use Status: Never used Tobacco e-Cigarette/Vaping Use: Never Used Second Hand Smoke Exposure: No service: No Current occupational status: disabled Cognitive needs: No Hearing needs: No Vision needs: No Questionnaire PHQ-9 Over the last 2 weeks, how often have you been bothered by any of the following problems? 1. Little interest or pleasure in doing things: several days 2. Feeling down, depressed, or hopeless: several days 3. Trouble falling or staying asleep, or sleeping too much: several days 4. Feeling tired or having little energy: several days 5. Poor appetite or overeating: several days 6. Feeling bad about yourself - or that you are a failure or have let yourself or your family down: nearly every day 7. Trouble concentrating on things, such as reading the newspaper or watching television: not at all 8. Moving or speaking so slowly that other people could have noticed. Or the opposite - being so fidgety or restless that you have been moving around a lot more than usual: not at all 9. Thoughts that you would be better off or of hurting yourself in some way: not at all Total score: 8 Depression Screening Interpretation: Negative Depression Screening Done: Yes 56920 - PHQ-9 Billing: Yes Source: Developed by Drs. Karan Meléndez, Mara Scales, Oscar Bennett and colleagues, with an educational robinson from [employer]. Thrive Questionnaire Date Thrive assessed: 10/15/24 I am a: Patient What is your living situation today?: I choose not to answer this question Within the past 12 months, did the food you bought not last and you didn't have the money to get more?: I choose not to answer this question Within the past 12 months, did you worry whether your food would run out before you got money to buy more?: I choose not to answer this question Do you have trouble paying for medicines?: No Do you have trouble getting transportation to medical appointments?: I choose not to answer this question Do you have trouble paying your heating and electricity bill?: I choose not to answer this question Do you have trouble taking care of your child, family member or friend?: I choose not to answer this question Do you have trouble with day-to-day activities such as bathing, preparing meals, shopping, managing finances, etc.?: I choose not to answer this question Are you currently unemployed and looking for a job?: I choose not to answer this question Are you interested in more education?: I choose not to answer this question Please select the resources that you would like help with: Paying for medicine and None Currently or been in a relationship where the following occur: I choose not to answer THRIVE Score: 0 AUDIT C Alcohol Use Questionnaire (AUDIT-C) 1. How often do you have a drink containing alcohol?: Never 3. How often do you have six or more drinks on one occasion?: Never Total Score: 0 Score Reviewed/Action Taken: Yes OANH-7 AMB Questionnaire OANH-7 Date OANH - 7 assessed: 10/15/24 Feeling nervous, anxious, or on edge: 1 = Several days Not being able to stop or control worryin = Several days Worrying too much about different things: 1 = Several days Trouble relaxin = Several days Being so restless that it is hard to sit still: 1 = Several days Becoming easily annoyed or irritable: 1 = Several days Feeling afraid as if something awful might happen: 0 = Not at all Total OANH-7 score (0-4 normal; 5-9 mild; 10-14 moderate; 15-21 severe): 6 Source: Developed by Drs. Karan Meléndez, Mara Scales, Oscar Bennett and colleagues, with an educational robinson from [employer]. OANH-7 Assessment Billing OANH-7 Assessment Tool: OANH-7 Assessment 98281 Physical exam (Primary Care) Vital Signs: Last Vital Signs Pulse 78 10/15/24 11:07 BP 130/88 10/15/24 11:07 Pulse Ox 97 10/15/24 11:07 Oxygen Delivery Method Room Air 10/15/24 11:07 BMI result Body Mass Index 31.7 Tobacco/Smoking Status: Tobacco use Status Tobacco use date assessed 10/15/24 10/15/24 11:10 Patient Tobacco Use Status Never used Tobacco 10/15/24 11:10 e-Cigarette/Vaping Use Never Used 10/15/24 11:10 PHQ-9: PHQ-9 Score PHQ-9: Total score 8 10/15/24 12:32 Depression Screening Interpretation: Negative Thrive Assessment: Date of Thrive Assessment Date Thrive assessed 10/15/24 10/15/24 11:10 Currently or been in a relationship where the following occur: I choose not to answer Coding Level of Care Code Est Pt Level 5 (56153) Complex EM visit Add On G2211 Diagnoses Anxiety, generalized F41.1 Moderate persistent asthma without complication J45.40 Asthma complication type: uncomplicated Esophageal spasm K22.4 Recurrent deep vein thrombosis (DVT) I82.409 Muscle spasms of both lower extremities M62.838 Diarrhea, unspecified type R19.7 Diarrhea type: unspecified type Colon cancer screening Z12.11 Acute right-sided low back pain without sciatica M54.50 Back pain laterality: right Chronicity: acute Sciatica presence: without sciatica Mobility impaired Z74.09 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 Z92.29 Leg pain, bilateral M79.604; M79.605 Back muscle spasm M62.830 Domestic problems Z65.8 Additional Codes OANH-7 Assessment Billing - OANH-7 Assessment Tool: OANH-7 Assessment 79819 ([id number]) PHQ-9 - 05131 - PHQ-9 Billing: Yes ([id number]) Assessment & Plan Assessment & Plan (1) Anxiety, generalized: Code(s): F41.1 - Generalized anxiety disorder Category: Medical (2) Asthma, moderate persistent: Code(s): J45.40 - Moderate persistent asthma, uncomplicated Category: Medical Qualifiers: Asthma complication type: uncomplicated Qualified Code(s): J45.40 - Moderate persistent asthma, uncomplicated (3) Esophageal spasm: Code(s): K22.4 - Dyskinesia of esophagus Category: Medical (4) Recurrent deep vein thrombosis (DVT): Code(s): I82.409 - Acute embolism and thrombosis of unspecified deep veins of unspecified lower extremity Category: Medical (5) Muscle spasms of both lower extremities: Code(s): M62.838 - Other muscle spasm Category: Medical (6) Diarrhea: Code(s): R19.7 - Diarrhea, unspecified Category: Medical Qualifiers: Diarrhea type: unspecified type Qualified Code(s): R19.7 - Diarrhea, unspecified (7) Colon cancer screening: Code(s): Z12.11 - Encounter for screening for malignant neoplasm of colon Category: Medical (8) Lower back pain: Code(s): M54.50 - Low back pain, unspecified Category: Medical Qualifiers: Back pain laterality: right Chronicity: acute Sciatica presence: without sciatica Qualified Code(s): M54.50 - Low back pain, unspecified (9) Mobility impaired: Code(s): Z74.09 - Other reduced mobility Category: Medical (10) 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 - She experienced severe anxiety related to personal financial and relationship problems, resulting in disorientation and hospitalization. - There is a noted gastrointestinal concern with suspected intestinal malrotation and a potential mass. As per patient however I do not have any documentation or notes from hospital we will retrieve those But I have placed a referral request to gastroenterology as patient also have other gastrointestinal problems and is due for colonoscopy - History of esophageal spasms treated with balloon dilation; denies constipation with episodes of diarrhea. - She is currently not using gabapentin and reports severe leg pain, preferring to avoid medication despite anxiety symptoms. - Lorazepam has been effective in managing anxiety previously. - The patient reports feeling abandoned by family and states she experiences anxiety-related physical symptoms. Assessment and Plan 64-year-old female with a history of anxiety and gastrointestinal issues presenting with exacerbated anxiety symptoms. Suspected intestinal malrotation with a potential mass. Musculoskeletal back pain reported, possibly linked to anxiety and medication avoidance. Effective prior use of lorazepam noted, indicating need for mental health support. Patient Instructions - Resume gabapentin at 100 mg twice a day. - Continue prescribed lorazepam as needed for anxiety. 0.5 mg lorazepam number 30 tablets sent - Make an appointment with a marble installer for a colonoscopy. - Return to care team in two weeks for follow-up on symptoms and medication efficacy. - Engage in therapy sessions as discussed for anxiety management. Patient met with our behavior health coordinator today so we can help her set therapy and to see psychiatrist for the management of severe anxiety panic disorder 45 minutes spent in care of this patient Orders: Referrals Gastroenterology Referral K22.4 - Dyskinesia of esophagus, R19.7 - Diarrhea, unspecified, Z12.11 - Encounter for screening for malignant neoplasm of colon Medications: New lorazepam 0.5 mg PO DAILY PRN 30 tabs 0RF anxiety 30 days Changed From tizanidine 2 mg PO Q8H PRN To tizanidine 2 mg PO Q12H PRN 60 tabs 0RF muscle spasm Refilled cholecalciferol (vitamin D3) 25 mcg PO DAILY 90 caps 1RF 90 days Discontinued buspirone Discontinued Reason: Doctor's Order 5 mg PO .q am 30 days PRN 30 tabs 0RF anxiety gabapentin Discontinued Reason: Doctor's Order 600 mg PO BID 90 days 180 tabs 0RF M79.604 - Pain in right leg, M79.605 - Pain in left leg
--- OUTSIDE RECORDS SUMMARY | 2024-10-15 13:16 | XMS_ITS | Continuity of Care Document ---
Author Organization [facility] Address [address] [place] [address]- Care Team Providers Care Telephone Station Repairer Name Role Phone John LUNDBERG, [facility] Primary [facility] Physician [phone] [id number] Date[facility]s): 08/16/24 - 09/25/[address] [address] Attending Physician: Matt Rosales II, MD Admitting Physician: Matt Rosales II, MD Referring Physician: Matt Rosales II, MD Encounter Type: Pre-Outpt Allergies, Adverse Reactions, Alerts Substance Criticality Severity Reaction Reaction Severity Status morphine GI Upset, itching Ac tive Contrast Dye 1 skin rash nose bleed Active Iron affects eye sight Ac tive NSAIDs 2 Active oxyCODONE GI Upset, itching Ac tive 1IV 2Due to being on blood thinner Immunizations Given and Recorded Vaccine Date Status Refusal Reason tetanus-diphtheria toxoids (Td) 1 07/27/11 Given 1Admin Note: MANFTD MASS BIO VIS GIVEN 08/19/2008 Medications albuterol-ipratropium 3 mg-0.5 mg/3 ml inhalation solution 3 mL, Neb, 4 times a day, j45.909, # 120 each, 4 Refills, Maintenance, 06/26/24 10:07:00 AM EDT, Solution, [facility] #[id number], Partial fill upon patient request if the prescription is for a schedule II opioid drug., 3 mL Neb 4 times a day,Instr:j45.909, 160.4, cm, 03/04/24 14:37:00 EDT, Height, 79.4, kg, 04/24/23 6:30:00 EDT, Dry Weight Start Date: 06/26/24 Status: Ordered Quantity: 120.0 Unit: each Repeat number: 5 Breo Ellipta 200 mcg-25 mcg/inh inhalation powder 1 puffs, Inhalation, Daily, # 1 each, 6 Refills, Maintenance, 06/05/24 2:38:00 PM EDT, [facility] #[id number], Partial fill upon patient request if the prescription is for a schedule II opioid drug., 1 puffs Inhalation Daily, 160.4, cm, 03/04/24 14:37:00 EDT, Height, 79.4, kg, 04/24/23 6:30:00 EDT, Dry Weight Start Date: 06/05/24 Status: Ordered Quantity: 1.0 Unit: each Repeat number: 7 Eliquis 2.5 mg oral tablet 1 tablet = 2.5 mg, By Mouth, 2 times a day, # 60 tablet, 0 Refills, Maintenance, 12/27/20 8:26:00 AMEDT, Tablet, Partial fill upon patient request if the prescription is for a schedule II opioid drug. Start Date: 12/27/20 Status: Ordered Quantity: 60.0 Unit: tablet Repeat number: 1 gabapentin 600 mg oral tablet 1 tablet = 600 mg, By Mouth, Daily at bedtime, TAKE 1 TABLET BY MOUTH AT BEDTIME, Maintenance Start Date: 12/27/20 Stop Date: 01/26/21 Status: Ordered Repeat number: 1 ProAir HFA 90 mcg/inh inhalation aerosol with adapter 1, puffs, Inhalation, Every 4 hours, PRN, # 8.5 Gm, Refills 0, Maintenance, 04/14/16 12:07:25 PM EDT, Aerosol Start Date: 04/14/16 Status: Ordered Quantity: 8.5 Unit: g Repeat number: 1 tiZANidine 4 mg oral capsule 1 capsule = 4 mg, By Mouth, Daily, PRN Spasm, # 90 capsule, 0 Refills, Maintenance, 12/27/20 8:24:00AM EDT, Capsule, Partial fill upon patient request if the prescription is for a schedule II opioid drug. Start Date: 12/27/20 Status: Ordered Quantity: 90.0 Unit: capsule Repeat number: 1 Problem List Condition Confirmation Course Effective Dates [...] in household: No entered on: 08/04/14 Sex Sex Representation Female (finding) Patient Care team information Care Team Personnel Name: Lucrecia Bradley RN Position: [facility] RN Member Role: Primary Care Nurse Name: John LUNDBERG, Phil Position: Reference Physician Member Role: PCP Address: [address] [place], [place] [address] Telecom: Name: Harinder Dick DO Position: [facility] Renal MD Member Role: Lifetime Consulting Physician Address: [address] [place], [place] [address] [place], [place] [address] Telecom: Care Team Related Persons Name: JANINE CABALLERO Name: FAITH KUO Name: MIGUEL KUO Name: CORA KUO Insurance Providers Guarantor name: MARA GALEANO Health Plan Information #: 1 Payer: MEDICARE PART B OUTPT Member Number: [id number] Policy Number: NA Group Number: NA Health Plan Information #: 2 Payer: [facility] Member Number: [id number] Policy Number: NA Group Number: NA
== END 2024-10-15 13:22 | disposition home or self-care (01) ==
PROVIDERS: PCP Internal Medicine; Visit Provider Internal Medicine
DX: F41.1 Generalized anxiety disorder (principal); J45.40 Moderate persistent asthma, uncomplicated; K22.4 Dyskinesia of esophagus; I82.409 Acute embolism and thrombosis of unspecified deep veins of unspecified lower extremity; M62.838 Other muscle spasm; R19.7 Diarrhea, unspecified; Z12.11 Encounter for screening for malignant neoplasm of colon; M54.50 Low back pain, unspecified; Z74.09 Other reduced mobility; Z92.29 Personal history of other drug therapy; M79.604 Pain in right leg; M79.605 Pain in left leg; M62.830 Muscle spasm of back; Z65.8 Other specified problems related to psychosocial circumstances

== ENCOUNTER → 2024-10-15 11:05 | Outpatient (BNVA) | payer MEDICARE, MEDICAID, SELFPAY | PROVIDERS: PCP Internal Medicine; Visit Provider Internal Medicine | DX: F41.9 Anxiety disorder, unspecified (principal); F41.1 Generalized anxiety disorder; J45.40 Moderate persistent asthma, uncomplicated; K22.4 Dyskinesia of esophagus; I82.409 Acute embolism and thrombosis of unspecified deep veins of unspecified lower extremity; M62.838 Other muscle spasm; R19.7 Diarrhea, unspecified; M54.50 Low back pain, unspecified; M79.604 Pain in right leg; M79.605 Pain in left leg; M62.830 Muscle spasm of back; Z74.09 Other reduced mobility; Z92.29 Personal history of other drug therapy; Z63.8 Other specified problems related to primary support group; Z59.9 Problem related to housing and economic circumstances, unspecified; Z65.8 Other specified problems related to psychosocial circumstances | CPT/HCPCS: 96127; 99212 ==

== ENCOUNTER 2025-02-14 10:33 | Outpatient (AMB) | payer MEDICARE, MEDICAID, SELFPAY ==
[2025-02-14 10:52] VITALS: BP 118/86; PULSE 71; RESP 15; TEMP 36.7; O2SAT 97; BMI 30.1
--- NOTE | 2025-02-14 10:52 | A.OFFPC_ITS ---
Vital Signs 02/14/25 10:52 Height 5 ft 3 in Weight 170 lb BMI 30.1 BP 118/86 Blood Pressure Location Rt brachial Position Sitting Respiration 15 Pulse 71 Pulse Source Pulse Oximeter Temp 98.1 F Temp Source Oral Pulse Oximetry (%) 97 Oxygen Delivery Method Room Air Intake Visit Reasons: Requesting referral for PT, resched Allergies esomeprazole [Nexium] Allergy (Unknown, Verified 02/14/25 10:53) Unknown iron Allergy (Unknown, Verified 02/14/25 10:53) I go blind oxycodone Allergy (Unknown, Verified 02/14/25 10:53) Unknown tramadol Allergy (Unknown, Verified 02/14/25 10:53) itching stomach pain headaches warfarin Adverse Reaction (Unknown, Verified 02/14/25 10:53) gum and nose bleeds Contrast dye Allergy (Unknown, Uncoded 02/14/25 10:53) itching, nosebleeds Medication List - Last Reconciled 02/14/25 by Phil Lopez MD albuterol sulfate 2.5 mg (3 mL) inhalation QID PRN apixaban (Eliquis) 2.5 mg PO BID cholecalciferol (vitamin D3) 25 mcg PO DAILY 90 days lorazepam 0.5 mg PO DAILY PRN 30 days [Motorized scooter Use As directed] [Power Wheel chair [address], script needs to say wheelchair clinic evaluation and fax at [phone], Clinic contact at [phone]] tizanidine 2 mg PO Q12H PRN Ventolin HFA 90 mcg/actuation (albuterol sulfate) 1 inh inhalation QID PRN 30 days NS Tobacco use date assessed: 10/15/24 Dental Screening Dental Screen Date: 02/14/25 Did you have a dental visit in the last 12 months?: No Did you have a dental problem in the last 6 months where you did not have access to dental care?: No Was dental information given to patient?: Patient has dentist HPI Requesting referral for PT, resched HPI Details History - The patient is a 64-year-old female wi th a history of vertigo left ear pain which is recent Also has a history of ongoing domestic problem due to difficulty with a residence, asthma moderate persistent, back muscle spasm lower legs spasms Recurrent DVTs, esophageal spasm, acid reflux, anxiety, difficulty with mobility dependent on motorized device for ambulation, chronic constipation presenting with a follow-up for peripheral neuropathy and anxiety disorder. Last visit was October of this year - Reported experiencing severe pain in h er leg due to nerve injury as diagnosed by an orthopedic physician a week ago. - The patient is considering starting th erapy as recommended by her orthopedic doctor. - Anxiety persists despite medication an d is exacerbated by her current living situation with her son, where she feels uncomfortable and uneasy. - Reports dizziness when changing positi ons, particularly when lying down, and registers a heavier sensation in the left ear. - Discontinued Breo but currently takes Eliquis, a muscle relaxant, and Lorazepam to manage conditions. - Rlast visit was in October, and recomm ended follow-ups are suggested every three months. On examination she has infection left ear I have sent amoxicillin for that reason And meclizine to be taken b.i.d. as needed Problem List - Peripheral Neuropathy - Anxiety Disorder - Dizziness - Left Ear Inflammation - Orthopedic Consultation for Possible P eripheral Neuropathy - asthma moderate persistent - dependent on motorized device for ambu lation - stress at home Patient Instructions - Call the orthopedic physician to obtai n an order for physical therapy specifically for neuropathy. - Return for a follow-up visit in three months. - Take prescribed medications for dizzin ess (meclizine) in the morning and at night. - Monitor dizziness and avoid sudden pos ition changes to prevent triggering symptoms. - Coordinate with her son regarding hous ing plans for increased comfort. - Continue taking prescribed medications as directed. - Consult a therapist for additional sup port for anxiety management if needed. Review of Systems - General: No fever no chills - Neurological: No headaches - Ear nose throat: No sore throat no hearing difficulty no ear pain - Cardiovascular: No syncope, no chest pain, no palpitations - Gastrointestinal: No nausea vomiting or diarrhea - Endocrine: No polyuria polydipsia no heat intolerance - Genitourinary: No dysuria , no blood in urine Physical Exam General: No acute distress, sitting on her motorized scooter HEENT: Left ear is inflamed Neck: Supple Respiratory system: Able to talk in full sentences, no audible wheeze Cardiovascular: S1-S2 regular in rate and rhythm Gastrointestinal: No pain Extremities: No new findings HADOOP ENGINEER: Alert awake oriented x3 motor sensory intact Skin: Normal turgor [facility] Medical History Asthma 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 Mother HTN (hypertension) Diabetes mellitus Brother No problems noted. Sister No problems noted. Sister No problems noted. Son No problems noted. Son No problems noted. Son No problems noted. Son No problems noted. Son No problems noted. Social History Housing: House Patient Tobacco Use Status: Never used Tobacco e-Cigarette/Vaping Use: Never Used Second Hand Smoke Exposure: No service: No Current occupational status: disabled Cognitive needs: No Hearing needs: No Vision needs: No Questionnaire Thrive Questionnaire Date Thrive assessed: 10/15/24 I am a: Patient What is your living situation today?: I choose not to answer this question Within the past 12 months, did the food you bought not last and you didn't have the money to get more?: I choose not to answer this question Within the past 12 months, did you worry whether your food would run out before you got money to buy more?: I choose not to answer this question Do you have trouble paying for medicines?: No Do you have trouble getting transportation to medical appointments?: I choose not to answer this question Do you have trouble paying your heating and electricity bill?: I choose not to answer this question Do you have trouble taking care of your child, family member or friend?: I choose not to answer this question Do you have trouble with day-to-day activities such as bathing, preparing meals, shopping, managing finances, etc.?: I choose not to answer this question Are you currently unemployed and looking for a job?: I choose not to answer this question Are you interested in more education?: I choose not to answer this question Currently or been in a relationship where the following occur: I choose not to answer THRIVE Score: 0 OANH-7 AMB Questionnaire OANH-7 Date OANH - 7 assessed: 10/15/24 Source: Developed by DrsBryan Meléndez, Mara Scales, Oscar Bennett and colleagues, with an educational robinson from [employer]. Physical exam (Primary Care) Vital Signs: Last Vital Signs Temp 98.1 F 02/14/25 10:52 Pulse 71 02/14/25 10:52 Resp 15 02/14/25 10:52 BP 118/86 02/14/25 10:52 Pulse Ox 97 02/14/25 10:52 Oxygen Delivery Method Room Air 02/14/25 10:52 BMI result Body Mass Index 30.1 Tobacco/Smoking Status: Tobacco use Status Tobacco use date assessed 10/15/24 02/14/25 10:53 Patient Tobacco Use Status Never used Tobacco 02/14/25 10:53 e-Cigarette/Vaping Use Never Used 02/14/25 10:53 Thrive Assessment: Date of Thrive Assessment Date Thrive assessed 10/15/24 02/14/25 10:53 Currently or been in a relationship where the following occur: I choose not to answer Coding Level of Care Code Est Pt Level 4 (42987) Complex EM visit Add On G2211 Diagnoses Vertigo R42 Left ear pain H92.02 Moderate persistent asthma without complication J45.40 Asthma complication type: uncomplicated Recurrent deep vein thrombosis (DVT) I82.409 Domestic problems Z65.8 Anxiety, generalized F41.1 Esophageal spasm K22.4 Muscle spasms of both lower extremities M62.838 Acute right-sided low back pain without sciatica M54.50 Chronicity: acute Back pain laterality: right Sciatica presence: without sciatica Mobility impaired Z74.09 Hx of nursing home use of blood thinners Z92.29 Leg pain, bilateral M79.604; M79.605 Back muscle spasm M62.830 Assessment & Plan Assessment & Plan (1) Vertigo: Code(s): R42 - Dizziness and giddiness Category: Medical (2) Left ear pain: Code(s): H92.02 - Otalgia, left ear Category: Medical (3) Asthma, moderate persistent: Code(s): J45.40 - Moderate persistent asthma, uncomplicated Category: Medical Qualifiers: Asthma complication type: uncomplicated Qualified Code(s): J45.40 - Moderate persistent asthma, uncomplicated (4) Recurrent deep vein thrombosis (DVT): Code(s): I82.409 - Acute embolism and thrombosis of unspecified deep veins of unspecified lower extremity Category: Medical (5) Domestic problems: Code(s): Z65.8 - Other specified problems related to psychosocial circumstances Category: Social Hx (6) Anxiety, generalized: Code(s): F41.1 - Generalized anxiety disorder Category: Medical (7) Esophageal spasm: Code(s): K22.4 - Dyskinesia of esophagus Category: Medical (8) Muscle spasms of both lower extremities: Code(s): M62.838 - Other muscle spasm Category: Medical (9) Lower back pain: Code(s): M54.50 - Low back pain, unspecified Category: Medical Qualifiers: Chronicity: acute Back pain laterality: right Sciatica presence: without sciatica Qualified Code(s): M54.50 - Low back pain, unspecified (10) Mobility impaired: Code(s): Z74.09 - Other reduced mobility Category: Medical (11) 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: Code(s): Z92.29 - Personal history of other drug therapy Category: Medical (12) Leg pain, bilateral: Code(s): M79.604 - Pain in right leg; M79.605 - Pain in left leg Category: Medical (13) Back muscle spasm: Code(s): M62.830 - Muscle spasm of back Category: Medical Plan History - The patient is a 64-year-old female with a history of vertigo left ear pain which is recent Also has a history of ongoing domestic problem due to difficulty with a r esidence, asthma moderate persistent, back muscle spasm lower legs spasms Recurrent DVTs, esophageal spasm, acid reflux, anxiety, difficulty with mobility dependent on motorized device for ambulation, chronic constipation presenting with a follow-up for peripheral neuropathy and anxiety disorder. Last visit was October of this year - Reported experiencing severe pain in her leg due to nerve injury as diagnosed by an orthopedic physician a week ago. - The patient is considering starting therapy as recommended by her orthopedic doctor. - Anxiety persists despite medication and is exacerbated by her current living situation with her son, where she feels uncomfortable and uneasy. - Reports dizziness when changing positions, particularly when lying down, and registers a heavier sensation in the left ear. - Discontinued Breo but currently takes Eliquis, a muscle relaxant, and Lorazepam to manage conditions. - Rlast visit was in October, and recommended follow-ups are suggested every three months. On examination she has infection left ear I have sent amoxicillin for that reason And meclizine to be taken b.i.d. as needed Problem List - Peripheral Neuropathy - Anxiety Disorder - Dizziness - Left Ear Inflammation - Orthopedic Consultation for Possible Peripheral Neuropathy - asthma moderate persistent - dependent on motorized device for ambulation - stress at home Patient Instructions - Call the orthopedic physician to obtain an order for physical therapy specifically for neuropathy. - Return for a follow-up visit in three months. - Take prescribed medications for dizziness (meclizine) in the morning and at night. - Monitor dizziness and avoid sudden position changes to prevent triggering symptoms. - Coordinate with her son regarding housing plans for increased comfort. - Continue taking prescribed medications as directed. - Consult a therapist for additional support for anxiety management if needed. Medications: New meclizine 25 mg PO BID PRN 60 tabs 0RF dizziness amoxicillin 875 mg PO BID 7 days 14 tabs 0RF Refilled tizanidine 2 mg PO Q12H PRN 60 tabs 0RF muscle spasm Ventolin HFA 90 mcg/actuation (albuterol sulfate) 1 inh inhalation QID 30 days PRN 18 grams 3RF shortness of breath or wheezing NS apixaban (Eliquis) 2.5 mg PO BID 180 tabs 2RF lorazepam 0.5 mg PO DAILY 30 days PRN 30 tabs 0RF anxiety cholecalciferol (vitamin D3) 25 mcg PO DAILY 90 days 90 caps 1RF
--- OUTSIDE RECORDS SUMMARY | 2025-02-14 11:00 | XMS_ITS | Clinical Summary ---
Author Organization [facility] Address [address] [place] [address] Phone Care Team Providers Care Golf Manager Name Role Phone Phil Lopez MD Primary Care Provider [phone] Encounters Date Type Department Care Team Description 02/13/2025 - 02/13/2025 9:49 PM EDT Emergency [facility] [address] [place] [phone] Discharge Disposition: ED Dismiss - Never Arrived 12/05/2024 10:30 AM EST Treatment [facility] [address] [phone] Nevaeh Jacobsen, PT Difficulty walking (Primary Dx) from Last 3 Months Social History Tobacco Use Types Packs/Day Years Used Date Smoking Tobacco: Never Assessed Comments Unknown Sex and Gender Information Value Date Recorded Sex Assigned at Not on file Legal Sex Female 4:37 AM EST Gender Identity Not on file Sexual Orientation Not on file Plan of Treatment Health Maintenance Due Date Last Done Comments Breast Cancer Screening 1960 DTaP,Tdap,and Td Vaccines (1 - Tdap) 1979 Cervical Cancer Screening: P ap Smear 1981 Pneumococcal Vaccine: 50+ Years (1 of 1 - PCV) 2010 Zoster Vaccines (1 of 2) 2010 COVID-19 Vaccine (4 - 2023-2 5 season) 2024 12/19/2021, 03/30/2021, 02/26/2021 Colorectal Cancer Screening: Colonoscopy 07/17/2024 Depression Screening 07/17/2024 HIV Screening 07/17/2024 Hepatitis C Screening 07/17/2024 Medicare Annual Wellness Visit 07/17/2024 Social Influencers of Health Screening 07/17/2024 Influenza Vaccine (Season Ended) 2025 RSV Immunization Adult Patients (1 - 1-dose 75+ series) 2035 HIB Vaccines Aged Out No longer eligi ble based on patient's age to complete this topic HPV Vaccines Aged Out No longer eligi ble based on patient's age to complete this topic Hepatitis A Vaccines Aged Out No long er eligible based on patient's age to complete this topic Hepatitis B Vaccines Aged Out No long er eligible based on patient's age to complete this topic IPV Vaccines Aged Out No longer eligi ble based on patient's age to complete this topic MMR Vaccines Aged Out No longer eligi ble based on patient's age to complete this topic Meningococcal ACWY Vaccine Aged Out N o longer eligible based on patient's age to complete this topic Meningococcal B Vaccine Aged Out No l onger eligible based on patient's age to complete this topic Pneumococcal Vaccine: Pediatrics (0 to 5 Years) and At-Risk Patients (6 to 64 Years) Aged Out No longer eligible b ased on patient's age to complete this topic RSV Immunization Patients Under 20 months Aged Out No longer eligible b ased on patient's age to complete this topic Varicella Vaccines Aged Out No longer eligible based on patient's age to complete this topic Insurance MEDICARE MEDICAID - [place] Care Teams Golf Manager Relationship Specialty Start Date End Date Phil Lopez MD [address] [place] [address] PCP - General Internal Medicine 09/12/24
--- OUTSIDE RECORDS SUMMARY | 2025-02-14 11:00 | XMS_ITS | Encounter Summary ---
Author Organization [employer] Address [address] [place] [address] Care Team Providers Care Fishing Vessel Captain Name Role Phone Phil Lopez MD Primary Care Provider [phone] Encounter Details Date Type Department Care Team (Late st Contact Info) Description 02/13/2025 - 02/13/2025 9:49 PM EDT [facility] [address] [place] [phone] Discharge Disposition: ED Dismiss - Never Arrived Social History Tobacco Use Types Packs/Day Years Used Date Smoking Tobacco: Never Assessed Comments Unknown Sex and Gender Information Value Date Recorded Sex Assigned at Not on file Legal Sex Female 4:37 AM EST Gender Identity Not on file Sexual Orientation Not on file documented as of this encounter Discharge Disposition Disposition Code Departure Means Destination ED Dismiss - Never Arrived documented in this encounter Plan of Treatment Not on file documented as of this encounter Visit Diagnoses Not on filedocumented in this encounter Care Teams Fishing Vessel Captain Relationship Specialty Start Date End Date Phil Lopez MD [address] [place] [phone] PCP - General Internal Medicine 09/12/24 documented as of this encounter
--- OUTSIDE RECORDS SUMMARY | 2025-02-14 11:00 | XMS_ITS | Encounter Summary ---
Author Organization [employer] Address [address] [place] [address] Care Team Providers Care Latex Spooler Name Role Phone Unavailable Primary Care Provider Unavailabl e Encounter Details Date Type Department Care Team (Late st Contact Info) Description 07/02/2024 4:59 PM EDT Hospital Encounter [facility]ORIC ENCOUNTERS [facility] CONVERSION ONLY Phil Lopez MD [address] [place] [address] Social History Tobacco Use Types Packs/Day Years Used Date Smoking Tobacco: Never Assessed Comments Unknown Sex and Gender Information Value Date Recorded Sex Assigned at Not on file Legal Sex Female 4:37 AM EST Gender Identity Not on file Sexual Orientation Not on file documented as of this encounter Plan of Treatment Not on file documented as of this encounter Visit Diagnoses Not on filedocumented in this encounter
--- OUTSIDE RECORDS SUMMARY | 2025-02-14 11:00 | XMS_ITS | Clinical Summary ---
Author Organization [facility] Address [address] [place] [phone] Care Team Providers Care Commissioning Manager Name Role Phone Unavailable Primary Care Provider Unavailabl e Social History Tobacco Use Types Packs/Day Years Used Date Smoking Tobacco: Never Assessed Comments Unknown Sex and Gender Information Value Date Recorded Sex Assigned at Not on file Legal Sex Female 12:39 PM EDT Gender Identity Not on file Sexual Orientation Not on file Plan of Treatment Health Maintenance Due Date Last Done Comments Breast Cancer Screening 1960 Colorectal Cancer Screening: Annual FOBT 2009 Colorectal Cancer Screening: Colonoscopy 2009 Colorectal Cancer Screening: Sigmoidoscopy 2009 Pneumococcal Vaccine: 50+ Ye ars (1 of 1 - PCV) 2010 Influenza Vaccine (Season Ended) 2025 Hepatitis B Vaccine Aged Out No longe r eligible based on patient's age to complete this topic Insurance Medicare Medicaid [place]
== END 2025-02-14 11:12 | disposition home or self-care (01) ==
LOC: HO.HMCC 10:33
PROVIDERS: PCP Internal Medicine; Visit Provider Internal Medicine
DX: R42 Dizziness and giddiness (principal); H92.02 Otalgia, left ear; J45.40 Moderate persistent asthma, uncomplicated; I82.409 Acute embolism and thrombosis of unspecified deep veins of unspecified lower extremity; Z65.8 Other specified problems related to psychosocial circumstances; F41.1 Generalized anxiety disorder; K22.4 Dyskinesia of esophagus; M62.838 Other muscle spasm; M54.50 Low back pain, unspecified; Z74.09 Other reduced mobility; Z92.29 Personal history of other drug therapy; M79.604 Pain in right leg; M79.605 Pain in left leg; M62.830 Muscle spasm of back

== ENCOUNTER → 2025-02-14 10:33 | Outpatient (BNVA) | payer MEDICARE, MEDICAID, SELFPAY | PROVIDERS: PCP Internal Medicine; Visit Provider Internal Medicine | DX: R42 Dizziness and giddiness (principal); H92.02 Otalgia, left ear; J45.40 Moderate persistent asthma, uncomplicated; F41.1 Generalized anxiety disorder; K22.4 Dyskinesia of esophagus; M62.838 Other muscle spasm; M54.50 Low back pain, unspecified; M79.605 Pain in left leg; M62.830 Muscle spasm of back; Z74.09 Other reduced mobility; Z92.29 Personal history of other drug therapy; Z65.8 Other specified problems related to psychosocial circumstances; Z86.718 Personal history of other venous thrombosis and embolism | CPT/HCPCS: 99212 ==

== ENCOUNTER 2025-03-20 12:07 | Outpatient (REF) | payer MEDICARE, MEDICAID, SELFPAY ==
[2025-03-20 18:24] LABS: Influenza A PCR NEGATIVE (Negative); Influenza B PCR NEGATIVE (Negative); Resp Syncy Virus RNA Qual PCR NEGATIVE (Negative); SARS COV2 PCR INHOUSE POSITIVE (Negative)
== END 2025-03-20 12:08 | disposition home or self-care (01) ==
LOC: HO.LAB 12:07
PROVIDERS: PCP Internal Medicine; Visit Provider Nurse Practitioner Family
DX: J06.9 Acute upper respiratory infection, unspecified (principal); U07.1 COVID-19
CPT/HCPCS: 0241U; 87880; 99212

== ENCOUNTER 2025-03-20 12:07 | Outpatient (AMB) | payer MEDICARE, MEDICAID, SELFPAY ==
[2025-03-20 12:17] VITALS: BP 120/80; PULSE 86; TEMP 36.8; O2SAT 97; BMI 30.5
--- NOTE | 2025-03-20 12:17 | AM.OFFWIN_ITS ---
Intake Vital Signs 03/20/25 12:17 Height 5 ft 3 in Weight 172 lb 6 oz BMI 30.5 BP 120/80 Blood Pressure Location Rt brachial Position Sitting Pulse 86 Pulse Source Pulse Oximeter Temp 98.3 F Temp Source Oral Pulse Oximetry (%) 97 Oxygen Delivery Method Room Air Intake Visit Reasons: EP cold symptoms Intake Note: Patient present with watery eyes, occasional cough, sore throat and brain fog times 2 days. States she live with someone who currenty has Covid. Another roommate has strep Patient Tobacco Use Status: Never used Tobacco Allergies esomeprazole (Nexium) Allergy (Unknown, Verified 03/20/25 12:22) Unknown iron Allergy (Unknown, Verified 03/20/25 12:22) I go blind oxycodone Allergy (Unknown, Verified 03/20/25 12:22) Unknown tramadol Allergy (Unknown, Verified 03/20/25 12:22) itching stomach pain headaches warfarin Adverse Reaction (Unknown, Verified 03/20/25 12:22) gum and nose bleeds Contrast dye Allergy (Unknown, Uncoded 02/14/25 10:53) itching, nosebleeds HPI HPI Comments History of Present Illness Details 64 y/o Female patient who presents to [facility] walk in clinic with c/o watery eyes, occasional cough, sore throat and brain fog for 2 days. States that she lives with someone who currently has Covid. Another roommate has strep. 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 Mother HTN (hypertension) Diabetes mellitus Brother No problems noted. Sister No problems noted. Sister No problems noted. Son No problems noted. Son No problems noted. Son No problems noted. Son No problems noted. Son No problems noted. Social History Housing: House Patient Tobacco Use Status: Never used Tobacco e-Cigarette/Vaping Use: Never Used Second Hand Smoke Exposure: No service: No Current occupational status: disabled Cognitive needs: No Hearing needs: No Vision needs: No Physical Exam Vital Signs: Last Vital Signs Temp 98.3 F 03/20/25 12:17 Pulse 86 03/20/25 12:17 BP 120/80 03/20/25 12:17 Pulse Ox 97 03/20/25 12:17 Oxygen Delivery Method Room Air 03/20/25 12:17 BMI result Body Mass Index 30.5 Const General: comfortable and no acute distress Nutritional Appearance: overweight Orientation/consciousness: patient oriented x3 HEENT Head: Yes normocephalic Ears: external ears normal and TM abnormal bulging and with fluid behind the TM bilateral General nose exam: Normal external nose present and Nasal discharge present Face and sinus: Yes sinuses nontender Mouth: moist mucous membranes Throat: Yes uvula midline and Yes abnormal tonsil (Enlarge tonsils +2 ) Resp Effort & Inspection: normal respiratory effort and able to speak in complete sentences Auscultation: clear to auscultation bilaterally, no crackles, no rales, no rhonchi and no wheezes Cardio Heart sounds: S1 normal heart sound present and S2 normal heart sound present Neuro General: patient oriented x3 Results AMB Rapid Strep AMB Rapid Strep Negative Last Edit by Jessica Craft MA on 03/20/25 12:38 Results Reviewed Results Reviewed: Laboratory Last Values Strep Scn Rapid Clinic Negative 03/20/25 12:30 Assessment & Plan Assessment & Plan (1) Acute respiratory disease: Code(s): J06.9 - Acute upper respiratory infection, unspecified Plan: Rapid Strep Negative Ordered SARs Probably Viral OTC cold remedies. Acetaminophen for pain relief Rest and hydrate well with warm fluids. Orders: Orders AMB Rapid Strep Screen Today Z13.9 - Encounter for screening, unspecified SARS-CoV2/FLU/RSV Today J06.9 - Acute upper respiratory infection, unspecified Coding Level of Care Code Est Pt Level 4 (65003) Diagnoses Acute respiratory disease J06.9 Time Spent (min) 20
--- OUTSIDE RECORDS SUMMARY | 2025-03-20 13:26 | XMS_ITS | Clinical Summary ---
Author Organization [facility] Address [address] [place] [address] Care Team Providers Care Foam Cutting Supervisor Name Role Phone Unavailable Primary Care Provider [...]
== END 2025-03-20 12:43 | disposition home or self-care (01) ==
PROVIDERS: PCP Internal Medicine; Visit Provider Nurse Practitioner Family
DX: Z13.9 Encounter for screening, unspecified (principal); J06.9 Acute upper respiratory infection, unspecified